=== PATIENT | female | born 1935 | race Caucasian/White ===

== ENCOUNTER 2017-08-17 17:15 | Inpatient (IN) ==
[2017-08-17] MEDS ORDERED: DILTIAZEM 50 MG/10 ML VIAL IV STA (17:24)
[2017-08-17] MEDS ORDERED: SODIUM CHLORIDE 0.9% 1,000 ML IV STA (17:26)
[2017-08-17] MEDS ORDERED: ALBUTEROL NEB SOLN 5 MG/ML 20 ML/BOTTLE CONT NEB STA (17:27)
[2017-08-17] MEDS ORDERED: ALBUTEROL 2.5 MG/3 ML NEB RESP TX ONE ×2 (17:32→17:33)
[2017-08-17] MEDS ORDERED: DILTIAZEM 50 MG/10 ML VIAL IV ONE (17:37)
[2017-08-17] MEDS ORDERED: DILTIAZEM 100 MG VIAL.ADD IV ONE (17:37)
[2017-08-17] MEDS ORDERED: SODIUM CHLORIDE 0.9% 100 ML IV ONE (17:37)
[2017-08-17 17:53] LABS: ABG Base Excess -2.9 MMOL/L (-2.5-2.5); ABG Oxygen Saturation 97.7 % (95-100); ABG PCO2 25.9 MM HG (35-48); ABG PH 7.475 (7.35-7.45); ABG PO2 88.4 MM HG (80-95); ABG TCO2 16.4 MMOL/L (23-27)
[2017-08-17 17:59] LABS: Basophils # 0.1 10*3/uL (0.0-0.2); Basophils % 0.2 % (0.0-0.8); Eosinophils # 0.5 10*3/uL (0.0-0.87); Eosinophils % 2.5 % (0.00-10.9); Hematocrit 40.9 VOL% (35.7-47.0); Hemoglobin 13.9 GM/DL (12.0-16.0); Immature Granulocytes % 1.7 %; Immature Granulocytes Absolute 0.36 #; Lymphocytes # 3.4 10*3/uL (1.4-4.0); Mean Corpuscular Hemoglobin 29 PG (27-34); Mean Corpuscular Volume 85.4 FL (87-102); Mean Platelet Volume 10.9 FL (9.6-12.0); Monocytes # 0.8 10*3/uL (0.11-0.8); Monocytes % 3.5 % (1.7-12.7); Neutrophils # 16.3 10*3/uL (1.4-7.4); Neutrophils % 76.1 % (38.7-73.9); Platelet Count 305 T/CUMM (130-400); Red Blood Count 4.79 MC/CUMM (3.8-5.5); Red Cell Distribution Width 14.3 % (9.3-17.3); White Blood Count 21.4 T/CUMM (4-12)
[2017-08-17 18:10] LABS: Partial Thromboplastin Time 35.4 SECS (0-40)
[2017-08-17 18:14] LABS: Apearance,Urine CLEAR (Clear); Bilirubin,Urine Negative (Negative); Blood, Urine Negative (Negative); Glucose,Urine (UA) Negative (Negative); Hyaline Casts,Urine 2 /LPF (0-3); Ketones,Urine Negative (Negative); Mucus,Urine Occasional /LPF (Occasional); Nitrite,Urine Negative (Negative); Protein,Urine 30 MG/DL; RBC,Urine 1 /HPF (0-4); Squamous Epithelial Cell,Urine Occasional /HPF (0-10); Urine Color Yellow (Yellow); Urine Specific Gravity 1.016 (1.001-1.035); Urine Urobilinogen < 2.0 EU/DL (0.2-1.0); WBC,Urine <1 /HPF (0-6)
[2017-08-17 18:20] LABS: Alanine Aminotransferase 15 U/L (13-56); Albumin 3.4 G/DL (3.4-5.0); Alkaline Phosphatase 89 U/L (45-117); Aspartate Amino Transferase 17 U/L (0-37); Blood Urea Nitrogen 71 MG/DL (7-18); Calcium 8.5 MG/DL (8.5-10.1); Glucose 126 MG/DL (74-106); Magnesium 1.8 MG/DL (1.8-2.4); Osmolality,Calculated 295.8 MOS/KG (273-304); Potassium 4.2 MMOL/L (3.5-5.1); Sodium 137 MMOL/L (136-145); Total Protein 6.8 G/DL (6.4-8.3); Troponin I Only < 0.015 NG/ML (0.00-0.045)
[2017-08-17 18:21] LABS: PT Patient Result 40.6 SECS
[2017-08-17] MEDS: DILTIAZEM INJ 100 MG in SODIUM CHLORIDE 0.9% 100 ML IV SCH (18:22)
[2017-08-17] MEDS ORDERED: ENOXAPARIN 100 MG/ML SYRINGE SUBCUT STA (19:20)
[2017-08-17] MEDS ORDERED: ENOXAPARIN 80 MG/0.8 ML SYRINGE SUBCUT ONE (19:39)
[2017-08-17 20:04] LABS: Eosinophils 3 % (0-10); Lymphocytes 7 % (20-55); Platelet Estimate Normal; Segmented Neutrophils 87 % (50-85); Total Cells Counted 100
[2017-08-17] MEDS ORDERED: MORPHINE 2 MG/1 ML SYRINGE IV PRN (22:20)
[2017-08-17] MEDS ORDERED: OSELTAMIVIR 75 MG CAPSULE PO SCH (22:20)
[2017-08-17] MEDS ORDERED: ONDANSETRON 4 MG/2 ML VIAL IV PRN (22:20)
[2017-08-17] MEDS ORDERED: LEVOFLOXACIN INJ 500 MG in PREMIX 1 EACH IV ONE (22:20)
[2017-08-17] MEDS ORDERED: ACETAMINOPHEN 325 MG TABLET PO PRN (22:20)
[2017-08-17] MEDS ORDERED: guaiFENesin/DM ER 600-30 MG TABLET PO PRN (22:20)
[2017-08-17] MEDS: SODIUM CHLORIDE 0.9% 1,000 ML IV SCH (22:30)
[2017-08-17] MEDS: methylPREDNISolone SOD SUC 40 MG/1 ML VIAL IV SCH (23:25)
[2017-08-18] MEDS: ALBUTEROL/IPRATROPIUM 3 ML NEB RESP TX SCH ×4 (00:07→20:57)
[2017-08-18] MEDS: DILTIAZEM INJ 100 MG in SODIUM CHLORIDE 0.9% 100 ML IV SCH ×2 (03:54→18:05)
[2017-08-18 05:11] LABS: Basophils % 0.1 % (0.0-0.8); Eosinophils % 0.1 % (0.00-10.9); Hematocrit 34.1 VOL% (35.7-47.0); Hemoglobin 11.1 GM/DL (12.0-16.0); Immature Granulocytes % 1.4 %; Immature Granulocytes Absolute 0.29 #; Lymphocytes % 5.1 % (21.3-54.2); Mean Corpuscular HGB Conc 32.6 GM/DL (32-36); Mean Corpuscular Hemoglobin 28 PG (27-34); Mean Corpuscular Volume 86.5 FL (87-102); Mean Platelet Volume 11.3 FL (9.6-12.0); Monocytes # 0.1 10*3/uL (0.11-0.8); Monocytes % 0.6 % (1.7-12.7); Neutrophils # 18.6 10*3/uL (1.4-7.4); Neutrophils % 92.7 % (38.7-73.9); Platelet Count 214 T/CUMM (130-400); Red Blood Count 3.94 MC/CUMM (3.8-5.5); Red Cell Distribution Width 14.4 % (9.3-17.3); White Blood Count 20.1 T/CUMM (4-12)
[2017-08-18 05:35] LABS: Eosinophils 1 % (0-10); Hypochromasia 1+; Lymphocytes 3 % (20-55); Microcytosis 1+; Segmented Neutrophils 94 % (50-85); Total Cells Counted 100
[2017-08-18 05:36] LABS: Ovalocytes Slight; Platelet Estimate Normal
[2017-08-18 06:22] LABS: Calcium 7.4 MG/DL (8.5-10.1); Calcium 7.8 MG/DL (8.5-10.1); Magnesium 1.9 MG/DL (1.8-2.4); Osmolality,Calculated 298.5 MOS/KG (273-304); Osmolality,Calculated 301.4 MOS/KG (273-304); Potassium 4.4 MMOL/L (3.5-5.1); Potassium 4.6 MMOL/L (3.5-5.1); Troponin I Only 0.016 NG/ML (0.00-0.045)
[2017-08-18] MEDS: methylPREDNISolone SOD SUC 40 MG/1 ML VIAL IV SCH (10:06)
[2017-08-18] MEDS: PANTOPRAZOLE 40 MG TABLET PO SCH (10:07)
[2017-08-18] MEDS: BENZONATATE 100 MG CAPSULE PO SCH ×3 (11:23→21:13)
[2017-08-18] MEDS: MONTELUKAST 10 MG TABLET PO SCH ×2 (11:23→21:12)
[2017-08-18] MEDS: DILTIAZEM CD 180 MG CAPSULE PO SCH (11:23)
[2017-08-18] MEDS: CHLORTHALIDONE 25 MG TABLET PO SCH (11:24)
[2017-08-18] MEDS ORDERED: AMINOPHYLLINE 250 MG in SODIUM CHLORIDE 0.9% 100 ML IV ONE (11:30)
[2017-08-18] MEDS: SODIUM CHLORIDE 0.9% 1,000 ML IV SCH ×2 (11:41→15:45)
[2017-08-18] MEDS ORDERED: BENZONATATE 100 MG CAPSULE PO SCH (15:00)
[2017-08-18] MEDS: AMINOPHYLLINE 500 MG in SODIUM CHLORIDE 0.9% 480 ML IV SCH (15:45)
[2017-08-18] MEDS: OSELTAMIVIR 30 MG CAPSULE PO SCH (21:12)
[2017-08-18] MEDS: LEVOFLOXACIN INJ 250 MG in PREMIX 1 EACH IV SCH (21:12)
[2017-08-18] MEDS: ENOXAPARIN 40 MG/0.4 ML SYRINGE SUBCUT SCH (21:12)
[2017-08-19] MEDS: methylPREDNISolone SOD SUC 40 MG/1 ML VIAL IV SCH ×3 (00:20→22:17)
[2017-08-19] MEDS: ALBUTEROL/IPRATROPIUM 3 ML NEB RESP TX SCH ×5 (00:21→19:29)
[2017-08-19] MEDS: SODIUM CHLORIDE 0.9% 1,000 ML IV SCH ×4 (01:37→19:51)
[2017-08-19 05:53] LABS: Basophils # 0.1 10*3/uL (0.0-0.2); Basophils % 0.2 % (0.0-0.8); Hematocrit 25.2 VOL% (35.7-47.0); Hemoglobin 8.6 GM/DL (12.0-16.0); Immature Granulocytes % 4.2 %; Immature Granulocytes Absolute 1.37 #; Lymphocytes % 3.1 % (21.3-54.2); Mean Corpuscular HGB Conc 34.1 GM/DL (32-36); Mean Corpuscular Hemoglobin 29 PG (27-34); Mean Corpuscular Volume 84.6 FL (87-102); Mean Platelet Volume 11.4 FL (9.6-12.0); Monocytes # 0.3 10*3/uL (0.11-0.8); Monocytes % 0.8 % (1.7-12.7); Neutrophils # 30.1 10*3/uL (1.4-7.4); Neutrophils % 91.7 % (38.7-73.9); Platelet Count 204 T/CUMM (130-400); Red Blood Count 2.98 MC/CUMM (3.8-5.5); Red Cell Distribution Width 14.7 % (9.3-17.3); White Blood Count 32.8 T/CUMM (4-12)
[2017-08-19 06:13] LABS: Band Neutrophils 1 % (0-10); Lymphocytes 3 % (20-55); Segmented Neutrophils 95 % (50-85); Total Cells Counted 100
[2017-08-19 06:14] LABS: Calcium 7.6 MG/DL (8.5-10.1); Hypochromasia Slight; Microcytosis 1+; Osmolality,Calculated 302.1 MOS/KG (273-304); Platelet Estimate Normal; Potassium 3.6 MMOL/L (3.5-5.1)
[2017-08-19] MEDS: LEVOTHYROXINE 100 MCG TABLET PO SCH (06:39)
[2017-08-19] MEDS: BENZONATATE 100 MG CAPSULE PO SCH ×4 (07:23→22:17)
[2017-08-19] MEDS: PANTOPRAZOLE 40 MG TABLET PO SCH ×2 (07:24→10:57)
[2017-08-19] MEDS: DILTIAZEM CD 180 MG CAPSULE PO SCH ×2 (07:24→10:57)
[2017-08-19] MEDS: MONTELUKAST 10 MG TABLET PO SCH ×3 (07:24→22:17)
[2017-08-19] MEDS: CHLORTHALIDONE 25 MG TABLET PO SCH ×2 (07:24→10:57)
[2017-08-19] MEDS: DILTIAZEM INJ 100 MG in SODIUM CHLORIDE 0.9% 100 ML IV SCH (09:49)
[2017-08-19] MEDS: OSELTAMIVIR 30 MG CAPSULE PO SCH ×2 (10:58→22:21)
[2017-08-19] MEDS: VANCOMYCIN INJ 1,000 MG in SODIUM CHLORIDE 0.9% 250 ML IV SCH (12:44)
[2017-08-19] MEDS: ALBUTEROL 2 MG TABLET PO SCH (16:30)
[2017-08-19] MEDS: AMINOPHYLLINE 500 MG in SODIUM CHLORIDE 0.9% 480 ML IV SCH (16:50)
[2017-08-19] MEDS ORDERED: ALUMINUM/MAGNES/SIMETH MAX STR 30 ML UDCUP PO PRN (18:04)
[2017-08-19] MEDS: ENOXAPARIN 40 MG/0.4 ML SYRINGE SUBCUT SCH (22:17)
[2017-08-19] MEDS: LEVOFLOXACIN INJ 250 MG in PREMIX 1 EACH IV SCH (22:20)
[2017-08-19] MEDS: ZALEPLON 5 MG CAPSULE PO PRN (22:47)
[2017-08-20] MEDS: ALBUTEROL 2 MG TABLET PO SCH ×4 (00:10→16:58)
[2017-08-20] MEDS: ALBUTEROL/IPRATROPIUM 3 ML NEB RESP TX SCH ×4 (00:11→19:55)
[2017-08-20] MEDS: SODIUM CHLORIDE 0.9% 1,000 ML IV SCH (02:11)
[2017-08-20 04:46] LABS: Basophils % 0.1 % (0.0-0.8); Hematocrit 19.5 VOL% (35.7-47.0); Hemoglobin 6.5 GM/DL (12.0-16.0); Immature Granulocytes % 4.7 %; Immature Granulocytes Absolute 1.65 #; Lymphocytes # 1.1 10*3/uL (1.4-4.0); Lymphocytes % 3.1 % (21.3-54.2); Mean Corpuscular HGB Conc 33.3 GM/DL (32-36); Mean Corpuscular Hemoglobin 29 PG (27-34); Mean Corpuscular Volume 88.2 FL (87-102); Mean Platelet Volume 11.6 FL (9.6-12.0); Monocytes # 0.4 10*3/uL (0.11-0.8); Monocytes % 1.1 % (1.7-12.7); Neutrophils # 32.2 10*3/uL (1.4-7.4); Platelet Count 198 T/CUMM (130-400); Red Blood Count 2.21 MC/CUMM (3.8-5.5); Red Cell Distribution Width 15.7 % (9.3-17.3); White Blood Count 35.4 T/CUMM (4-12)
[2017-08-20] MEDS: DILTIAZEM INJ 100 MG in SODIUM CHLORIDE 0.9% 100 ML IV SCH ×3 (05:08→18:01)
[2017-08-20 05:14] LABS: Calcium 7.3 MG/DL (8.5-10.1); Osmolality,Calculated 305.6 MOS/KG (273-304); Potassium 3.6 MMOL/L (3.5-5.1)
[2017-08-20 05:22] LABS: INR 3.7
[2017-08-20 05:28] LABS: PT Patient Result 37.7 SECS
[2017-08-20 05:37] LABS: Band Neutrophils 1 % (0-10); Giant Platelets Few; Hypochromasia 1+; Lymphocytes 2 % (20-55); Microcytosis Slight; Ovalocytes Slight; Platelet Estimate Adequate; Segmented Neutrophils 95 % (50-85); Total Cells Counted 100
[2017-08-20] MEDS: LEVOTHYROXINE 100 MCG TABLET PO SCH (06:18)
[2017-08-20] MEDS ORDERED: CALCIUM GLUCONATE 1,000 MG in SODIUM CHLORIDE 0.9% 100 ML IV ONE (06:28)
[2017-08-20] MEDS: SODIUM CHLORIDE 0.45% 1,000 ML IV SCH ×2 (07:10→20:41)
[2017-08-20] MEDS: DILTIAZEM CD 180 MG CAPSULE PO SCH (09:21)
[2017-08-20] MEDS: PANTOPRAZOLE 40 MG TABLET PO SCH (09:21)
[2017-08-20] MEDS: MONTELUKAST 10 MG TABLET PO SCH ×2 (09:21→21:45)
[2017-08-20] MEDS: CHLORTHALIDONE 25 MG TABLET PO SCH (09:21)
[2017-08-20] MEDS: BENZONATATE 100 MG CAPSULE PO SCH ×3 (09:21→21:45)
[2017-08-20] MEDS: OSELTAMIVIR 30 MG CAPSULE PO SCH ×2 (09:26→21:45)
[2017-08-20 09:39] LABS: Basophils # 0.1 10*3/uL (0.0-0.2); Basophils % 0.2 % (0.0-0.8); Hematocrit 20.7 VOL% (35.7-47.0); Immature Granulocytes % 4.2 %; Immature Granulocytes Absolute 1.86 #; Lymphocytes # 1.9 10*3/uL (1.4-4.0); Lymphocytes % 4.2 % (21.3-54.2); Mean Corpuscular HGB Conc 33.8 GM/DL (32-36); Mean Corpuscular Hemoglobin 30 PG (27-34); Mean Corpuscular Volume 88.5 FL (87-102); Mean Platelet Volume 12.2 FL (9.6-12.0); Monocytes # 0.6 10*3/uL (0.11-0.8); Monocytes % 1.3 % (1.7-12.7); NRBC # 0.02 10*3/uL; Neutrophils # 39.7 10*3/uL (1.4-7.4); Neutrophils % 90.1 % (38.7-73.9); Platelet Count 228 T/CUMM (130-400); Red Blood Count 2.34 MC/CUMM (3.8-5.5); Red Cell Distribution Width 15.8 % (9.3-17.3)
[2017-08-20 09:41] LABS: White Blood Count 44.1 T/CUMM (4-12)
[2017-08-20] MEDS ORDERED: SODIUM CHLORIDE 0.9% 1,000 ML IV PRN (09:55)
[2017-08-20 09:57] LABS: Band Neutrophils 2 % (0-10); Lymphocytes 7 % (20-55); Nucleated Red Blood Cells 1 (0-5); Segmented Neutrophils 90 % (50-85); Total Cells Counted 100
[2017-08-20 09:58] LABS: Giant Platelets Few; Hypochromasia 1+; Microcytosis Slight; Ovalocytes Slight; Platelet Estimate Adequate
[2017-08-20] MEDS: methylPREDNISolone SOD SUC 40 MG/1 ML VIAL IV SCH ×2 (11:38→21:45)
[2017-08-20] MEDS: VANCOMYCIN INJ 1,000 MG in SODIUM CHLORIDE 0.9% 250 ML IV SCH (11:47)
[2017-08-20] MEDS: AMINOPHYLLINE 500 MG in SODIUM CHLORIDE 0.9% 480 ML IV SCH (13:07)
[2017-08-20] MEDS: SUCRALFATE 1 GM TABLET PO SCH ×2 (16:57→21:45)
[2017-08-20] MEDS: THEOPHYLLINE ER 300 MG TABLET PO SCH (16:58)
[2017-08-20 21:18] LABS: Hematocrit 25.9 VOL% (35.7-47.0); Hemoglobin 8.7 GM/DL (12.0-16.0)
[2017-08-20] MEDS: ENOXAPARIN 40 MG/0.4 ML SYRINGE SUBCUT SCH (21:34)
[2017-08-20] MEDS: ZALEPLON 5 MG CAPSULE PO PRN ×2 (21:45→23:10)
[2017-08-20] MEDS: LEVOFLOXACIN INJ 250 MG in PREMIX 1 EACH IV SCH (21:48)
[2017-08-21] MEDS: ALBUTEROL/IPRATROPIUM 3 ML NEB RESP TX SCH ×4 (00:50→20:17)
[2017-08-21 05:09] LABS: Basophils % 0.1 % (0.0-0.8); Hematocrit 23.2 VOL% (35.7-47.0); Immature Granulocytes % 5.3 %; Immature Granulocytes Absolute 1.59 #; Lymphocytes # 1.2 10*3/uL (1.4-4.0); Lymphocytes % 3.8 % (21.3-54.2); Mean Corpuscular HGB Conc 34.5 GM/DL (32-36); Mean Corpuscular Hemoglobin 30 PG (27-34); Mean Corpuscular Volume 85.9 FL (87-102); Mean Platelet Volume 11.9 FL (9.6-12.0); Monocytes # 0.4 10*3/uL (0.11-0.8); Monocytes % 1.4 % (1.7-12.7); NRBC # 0.06 10*3/uL; Neutrophils # 26.9 10*3/uL (1.4-7.4); Neutrophils % 89.4 % (38.7-73.9); Platelet Count 169 T/CUMM (130-400); Red Cell Distribution Width 15.5 % (9.3-17.3); White Blood Count 30.2 T/CUMM (4-12)
[2017-08-21 05:32] LABS: INR 2.8
[2017-08-21 05:44] LABS: Calcium 7.5 MG/DL (8.5-10.1); Osmolality,Calculated 296.4 MOS/KG (273-304); Potassium 3.1 MMOL/L (3.5-5.1)
[2017-08-21 05:47] LABS: PT Patient Result 28.9 SECS
[2017-08-21 06:28] LABS: Hypochromasia 1+; Lymphocytes 7 % (20-55); Microcytosis Slight; Nucleated Red Blood Cells 1 (0-5); Segmented Neutrophils 91 % (50-85); Total Cells Counted 100
[2017-08-21 06:29] LABS: Ovalocytes Slight; Platelet Estimate Adequate
[2017-08-21] MEDS: LEVOTHYROXINE 100 MCG TABLET PO SCH (06:36)
[2017-08-21] MEDS: SODIUM CHLORIDE 0.45% 1,000 ML IV SCH ×3 (06:37→22:37)
[2017-08-21] MEDS: ALBUTEROL 2 MG TABLET PO SCH ×3 (08:31→17:08)
[2017-08-21] MEDS: BENZONATATE 100 MG CAPSULE PO SCH ×3 (08:31→21:55)
[2017-08-21] MEDS: DILTIAZEM CD 180 MG CAPSULE PO SCH (08:31)
[2017-08-21] MEDS: THEOPHYLLINE ER 300 MG TABLET PO SCH ×2 (08:31→17:07)
[2017-08-21] MEDS: MONTELUKAST 10 MG TABLET PO SCH ×2 (08:32→21:46)
[2017-08-21] MEDS: PANTOPRAZOLE 40 MG TABLET PO SCH (08:32)
[2017-08-21] MEDS: POTASSIUM CHLORIDE 20 MEQ TABLET PO PRN ×4 (08:32→17:08)
[2017-08-21] MEDS: OSELTAMIVIR 30 MG CAPSULE PO SCH ×2 (08:32→21:53)
[2017-08-21] MEDS: CHLORTHALIDONE 25 MG TABLET PO SCH (08:32)
[2017-08-21] MEDS: SUCRALFATE 1 GM TABLET PO SCH ×4 (08:32→21:46)
[2017-08-21] MEDS: methylPREDNISolone SOD SUC 40 MG/1 ML VIAL IV SCH ×2 (09:21→21:46)
[2017-08-21] MEDS: VANCOMYCIN INJ 1,000 MG in SODIUM CHLORIDE 0.9% 250 ML IV SCH (09:25)
[2017-08-21] MEDS: METOPROLOL TARTRATE 50 MG TABLET PO SCH ×2 (14:25→21:45)
[2017-08-21] MEDS ORDERED: WARFARIN 1 MG TABLET PO SCH (18:00)
[2017-08-21] MEDS: ZALEPLON 5 MG CAPSULE PO PRN (21:46)
[2017-08-21] MEDS: LEVOFLOXACIN INJ 250 MG in PREMIX 1 EACH IV SCH (21:48)
[2017-08-21] MEDS: ENOXAPARIN 40 MG/0.4 ML SYRINGE SUBCUT SCH (21:52)
[2017-08-22] MEDS: ALBUTEROL/IPRATROPIUM 3 ML NEB RESP TX SCH ×4 (01:58→20:02)
[2017-08-22 05:06] LABS: Basophils % 0.1 % (0.0-0.8); Hematocrit 24.7 VOL% (35.7-47.0); Hemoglobin 8.5 GM/DL (12.0-16.0); Immature Granulocytes % 4.2 %; Immature Granulocytes Absolute 1.21 #; Lymphocytes # 1.1 10*3/uL (1.4-4.0); Lymphocytes % 3.8 % (21.3-54.2); Mean Corpuscular HGB Conc 34.4 GM/DL (32-36); Mean Corpuscular Hemoglobin 30 PG (27-34); Mean Corpuscular Volume 87.9 FL (87-102); Mean Platelet Volume 11.7 FL (9.6-12.0); Monocytes # 0.6 10*3/uL (0.11-0.8); Monocytes % 2.2 % (1.7-12.7); NRBC # 0.09 10*3/uL; Neutrophils # 25.9 10*3/uL (1.4-7.4); Neutrophils % 89.7 % (38.7-73.9); Platelet Count 177 T/CUMM (130-400); Red Blood Count 2.81 MC/CUMM (3.8-5.5); Red Cell Distribution Width 15.9 % (9.3-17.3); White Blood Count 28.9 T/CUMM (4-12)
[2017-08-22 05:39] LABS: Calcium 8.1 MG/DL (8.5-10.1); Osmolality,Calculated 299.1 MOS/KG (273-304); Potassium 4.1 MMOL/L (3.5-5.1)
[2017-08-22 05:41] LABS: INR 2.1
[2017-08-22] MEDS: LEVOTHYROXINE 100 MCG TABLET PO SCH (06:05)
[2017-08-22 06:07] LABS: PT Patient Result 21.6 SECS
[2017-08-22 06:25] LABS: Troponin I Only 0.035 NG/ML (0.00-0.045)
[2017-08-22 06:28] LABS: Band Neutrophils 1 % (0-10); Hypochromasia 1+; Lymphocytes 5 % (20-55); Microcytosis 1+; Ovalocytes Slight; Platelet Estimate Adequate; Segmented Neutrophils 93 % (50-85); Total Cells Counted 100
[2017-08-22 06:29] LABS: Burr Cells Slight
[2017-08-22] MEDS: ALBUTEROL 2 MG TABLET PO SCH ×3 (09:02→16:56)
[2017-08-22] MEDS: CHLORTHALIDONE 25 MG TABLET PO SCH (09:02)
[2017-08-22] MEDS: BENZONATATE 100 MG CAPSULE PO SCH ×3 (09:03→21:24)
[2017-08-22] MEDS: METOPROLOL TARTRATE 50 MG TABLET PO SCH ×2 (09:03→21:25)
[2017-08-22] MEDS: SUCRALFATE 1 GM TABLET PO SCH ×4 (09:03→21:25)
[2017-08-22] MEDS: PANTOPRAZOLE 40 MG TABLET PO SCH (09:03)
[2017-08-22] MEDS: DILTIAZEM CD 180 MG CAPSULE PO SCH (09:03)
[2017-08-22] MEDS: THEOPHYLLINE ER 300 MG TABLET PO SCH ×2 (09:03→17:02)
[2017-08-22] MEDS: MONTELUKAST 10 MG TABLET PO SCH ×2 (09:03→21:25)
[2017-08-22] MEDS: methylPREDNISolone SOD SUC 40 MG/1 ML VIAL IV SCH ×2 (10:21→21:25)
[2017-08-22] MEDS: VANCOMYCIN INJ 1,000 MG in SODIUM CHLORIDE 0.9% 250 ML IV SCH (10:24)
[2017-08-22] MEDS: POLYETHYLENE GLYCOL POWDER 17 GM PACK PO SCH (10:25)
[2017-08-22] MEDS ORDERED: WARFARIN 1 MG TABLET PO SCH (13:25)
[2017-08-22] MEDS: ENOXAPARIN 40 MG/0.4 ML SYRINGE SUBCUT SCH (21:20)
[2017-08-22] MEDS: ZALEPLON 5 MG CAPSULE PO PRN (21:25)
[2017-08-22] MEDS: LEVOFLOXACIN INJ 250 MG in PREMIX 1 EACH IV SCH (21:27)
[2017-08-23] MEDS: ALBUTEROL/IPRATROPIUM 3 ML NEB RESP TX SCH ×4 (00:56→21:06)
[2017-08-23] MEDS ORDERED: VANCOMYCIN INJ 1,000 MG in SODIUM CHLORIDE 0.9% 250 ML IV SCH (03:00)
[2017-08-23 05:44] LABS: Basophils % 0.1 % (0.0-0.8); Hematocrit 23.5 VOL% (35.7-47.0); Hemoglobin 8.1 GM/DL (12.0-16.0); Immature Granulocytes % 3.3 %; Immature Granulocytes Absolute 0.71 #; Lymphocytes # 0.6 10*3/uL (1.4-4.0); Mean Corpuscular HGB Conc 34.5 GM/DL (32-36); Mean Corpuscular Hemoglobin 30 PG (27-34); Mean Platelet Volume 11.5 FL (9.6-12.0); Monocytes # 0.5 10*3/uL (0.11-0.8); Monocytes % 2.4 % (1.7-12.7); NRBC # 0.05 10*3/uL; Neutrophils # 19.5 10*3/uL (1.4-7.4); Neutrophils % 91.2 % (38.7-73.9); Platelet Count 169 T/CUMM (130-400); Red Blood Count 2.67 MC/CUMM (3.8-5.5); Red Cell Distribution Width 15.9 % (9.3-17.3); White Blood Count 21.3 T/CUMM (4-12)
[2017-08-23 06:00] LABS: INR 1.9; PT Patient Result 19.5 SECS
[2017-08-23] MEDS: LEVOTHYROXINE 100 MCG TABLET PO SCH (06:00)
[2017-08-23 06:11] LABS: Calcium 7.5 MG/DL (8.5-10.1); Osmolality,Calculated 295.4 MOS/KG (273-304); Potassium 3.6 MMOL/L (3.5-5.1)
[2017-08-23 06:19] LABS: Hypochromasia 1+; Lymphocytes 4 % (20-55); Platelet Estimate Normal; Segmented Neutrophils 96 % (50-85); Total Cells Counted 100
[2017-08-23 06:20] LABS: Anisocytosis Slight; Microcytosis Slight; Ovalocytes 1+
[2017-08-23] MEDS: methylPREDNISolone SOD SUC 40 MG/1 ML VIAL IV SCH ×3 (08:56→21:59)
[2017-08-23] MEDS: METOPROLOL TARTRATE 50 MG TABLET PO SCH ×2 (08:57→21:59)
[2017-08-23] MEDS: THEOPHYLLINE ER 300 MG TABLET PO SCH ×2 (08:57→16:34)
[2017-08-23] MEDS: SUCRALFATE 1 GM TABLET PO SCH ×4 (08:58→21:58)
[2017-08-23] MEDS: PANTOPRAZOLE 40 MG TABLET PO SCH (08:58)
[2017-08-23] MEDS: MONTELUKAST 10 MG TABLET PO SCH ×2 (08:58→21:58)
[2017-08-23] MEDS: CHLORTHALIDONE 25 MG TABLET PO SCH (08:58)
[2017-08-23] MEDS: BENZONATATE 100 MG CAPSULE PO SCH ×3 (08:58→21:58)
[2017-08-23] MEDS: ALBUTEROL 2 MG TABLET PO SCH ×3 (10:12→16:34)
[2017-08-23] MEDS: DILTIAZEM CD 180 MG CAPSULE PO SCH (10:12)
[2017-08-23] MEDS: POLYETHYLENE GLYCOL POWDER 17 GM PACK PO SCH (10:12)
[2017-08-23] MEDS ORDERED: WARFARIN 3 MG TABLET PO SCH (13:27)
[2017-08-23] MEDS: ZALEPLON 5 MG CAPSULE PO PRN (22:12)
[2017-08-24] MEDS: ALBUTEROL/IPRATROPIUM 3 ML NEB RESP TX SCH ×4 (01:36→20:05)
[2017-08-24 05:14] LABS: Basophils % 0.1 % (0.0-0.8); Hematocrit 25.4 VOL% (35.7-47.0); Hemoglobin 8.7 GM/DL (12.0-16.0); Immature Granulocytes % 2.5 %; Immature Granulocytes Absolute 0.46 #; Lymphocytes # 0.4 10*3/uL (1.4-4.0); Lymphocytes % 2.2 % (21.3-54.2); Mean Corpuscular HGB Conc 34.3 GM/DL (32-36); Mean Corpuscular Hemoglobin 31 PG (27-34); Mean Corpuscular Volume 89.1 FL (87-102); Mean Platelet Volume 11.2 FL (9.6-12.0); Monocytes # 0.4 10*3/uL (0.11-0.8); Monocytes % 2.3 % (1.7-12.7); NRBC # 0.03 10*3/uL; Neutrophils # 17.1 10*3/uL (1.4-7.4); Neutrophils % 92.9 % (38.7-73.9); Platelet Count 179 T/CUMM (130-400); Red Blood Count 2.85 MC/CUMM (3.8-5.5); White Blood Count 18.4 T/CUMM (4-12)
[2017-08-24 05:22] LABS: INR 1.5; PT Patient Result 15.4 SECS
[2017-08-24 05:44] LABS: Giant Platelets Few; Hypochromasia 1+; Lymphocytes 1 % (20-55); Microcytosis Slight; Ovalocytes Slight; Platelet Estimate Normal; Segmented Neutrophils 96 % (50-85); Total Cells Counted 100
[2017-08-24 05:50] LABS: Calcium 7.2 MG/DL (8.5-10.1); Osmolality,Calculated 293.3 MOS/KG (273-304); Potassium 3.1 MMOL/L (3.5-5.1)
[2017-08-24] MEDS: LEVOTHYROXINE 100 MCG TABLET PO SCH (07:51)
[2017-08-24] MEDS: THEOPHYLLINE ER 300 MG TABLET PO SCH ×2 (07:52→16:07)
[2017-08-24] MEDS: SUCRALFATE 1 GM TABLET PO SCH ×4 (07:52→20:29)
[2017-08-24] MEDS: ALBUTEROL 2 MG TABLET PO SCH (07:52)
[2017-08-24] MEDS: DILTIAZEM CD 180 MG CAPSULE PO SCH ×2 (09:17→16:08)
[2017-08-24] MEDS: METOPROLOL TARTRATE 50 MG TABLET PO SCH ×2 (09:17→20:29)
[2017-08-24] MEDS: POLYETHYLENE GLYCOL POWDER 17 GM PACK PO SCH (09:18)
[2017-08-24] MEDS: PANTOPRAZOLE 40 MG TABLET PO SCH (09:18)
[2017-08-24] MEDS: MONTELUKAST 10 MG TABLET PO SCH ×2 (09:18→20:30)
[2017-08-24] MEDS: BENZONATATE 100 MG CAPSULE PO SCH ×3 (09:18→20:30)
[2017-08-24] MEDS: methylPREDNISolone SOD SUC 40 MG/1 ML VIAL IV SCH (10:32)
[2017-08-24] MEDS ORDERED: POTASSIUM CHLORIDE INJ 20 MEQ in SODIUM CHLORIDE 0.9% 250 ML IV ONE (11:00)
[2017-08-24 13:24] LABS: Osmolality,Calculated 291.3 MOS/KG (273-304); Potassium 3.6 MMOL/L (3.5-5.1)
[2017-08-24] MEDS: POTASSIUM CHLORIDE 20 MEQ TABLET PO SCH (16:08)
[2017-08-24] MEDS: ZALEPLON 5 MG CAPSULE PO PRN (22:33)
[2017-08-25] MEDS: ALBUTEROL/IPRATROPIUM 3 ML NEB RESP TX SCH ×4 (01:32→19:54)
[2017-08-25 06:14] LABS: Basophils % 0.1 % (0.0-0.8); Hemoglobin 8.1 GM/DL (12.0-16.0); Immature Granulocytes % 2.1 %; Immature Granulocytes Absolute 0.32 #; Lymphocytes # 0.8 10*3/uL (1.4-4.0); Lymphocytes % 5.1 % (21.3-54.2); Mean Corpuscular HGB Conc 33.8 GM/DL (32-36); Mean Corpuscular Hemoglobin 30 PG (27-34); Mean Corpuscular Volume 89.2 FL (87-102); Mean Platelet Volume 11.1 FL (9.6-12.0); Monocytes # 0.8 10*3/uL (0.11-0.8); Monocytes % 4.9 % (1.7-12.7); NRBC # 0.02 10*3/uL; Neutrophils # 13.4 10*3/uL (1.4-7.4); Neutrophils % 87.8 % (38.7-73.9); Platelet Count 165 T/CUMM (130-400); Red Blood Count 2.69 MC/CUMM (3.8-5.5); White Blood Count 15.2 T/CUMM (4-12)
[2017-08-25 06:20] LABS: INR 1.3; PT Patient Result 13.1 SECS
[2017-08-25 06:35] LABS: Calcium 7.5 MG/DL (8.5-10.1); Osmolality,Calculated 288.4 MOS/KG (273-304); Potassium 3.8 MMOL/L (3.5-5.1)
[2017-08-25] MEDS ORDERED: PROPOFOL 200 MG/20 ML VIAL IV ONE (12:05)
[2017-08-25] MEDS ORDERED: LIDOCAINE 100 MG/5 ML SYRINGE ONE (12:05)
[2017-08-25] MEDS: BENZONATATE 100 MG CAPSULE PO SCH ×3 (14:32→20:43)
[2017-08-25] MEDS: LEVOTHYROXINE 100 MCG TABLET PO SCH (14:32)
[2017-08-25] MEDS: MONTELUKAST 10 MG TABLET PO SCH ×2 (14:33→20:43)
[2017-08-25] MEDS: THEOPHYLLINE ER 300 MG TABLET PO SCH ×2 (14:33→18:24)
[2017-08-25] MEDS: SUCRALFATE 1 GM TABLET PO SCH ×3 (14:35→20:43)
[2017-08-25] MEDS: POTASSIUM CHLORIDE 20 MEQ TABLET PO SCH (14:37)
[2017-08-25] MEDS: METOPROLOL TARTRATE 50 MG TABLET PO SCH ×2 (14:38→20:43)
[2017-08-25] MEDS: DILTIAZEM CD 180 MG CAPSULE PO SCH (14:39)
[2017-08-25] MEDS: PANTOPRAZOLE 40 MG TABLET PO SCH ×2 (14:41→20:43)
[2017-08-25] MEDS: methylPREDNISolone SOD SUC 40 MG/1 ML VIAL IV SCH (18:25)
[2017-08-26] MEDS: ALBUTEROL/IPRATROPIUM 3 ML NEB RESP TX SCH ×4 (01:02→21:31)
[2017-08-26 03:30] LABS: Basophils % 0.1 % (0.0-0.8); Hematocrit 24.6 VOL% (35.7-47.0); Hemoglobin 8.5 GM/DL (12.0-16.0); Immature Granulocytes % 1.5 %; Immature Granulocytes Absolute 0.28 #; Lymphocytes # 0.5 10*3/uL (1.4-4.0); Lymphocytes % 2.6 % (21.3-54.2); Mean Corpuscular HGB Conc 34.6 GM/DL (32-36); Mean Corpuscular Hemoglobin 30 PG (27-34); Mean Corpuscular Volume 87.9 FL (87-102); Mean Platelet Volume 11.1 FL (9.6-12.0); Monocytes # 0.2 10*3/uL (0.11-0.8); Monocytes % 0.8 % (1.7-12.7); Neutrophils # 17.4 10*3/uL (1.4-7.4); Platelet Count 168 T/CUMM (130-400); Red Cell Distribution Width 15.5 % (9.3-17.3); White Blood Count 18.3 T/CUMM (4-12)
[2017-08-26 03:46] LABS: INR 1.1; PT Patient Result 11.9 SECS
[2017-08-26 04:27] LABS: Lymphocytes 1 % (20-55); Segmented Neutrophils 99 % (50-85); Total Cells Counted 100
[2017-08-26 04:28] LABS: Hypochromasia 1+; Microcytosis Slight; Ovalocytes Slight; Platelet Estimate Normal
[2017-08-26] MEDS: LEVOTHYROXINE 100 MCG TABLET PO SCH (06:48)
[2017-08-26] MEDS: ALBUTEROL 2 MG TABLET PO SCH ×6 (09:13→16:52)
[2017-08-26] MEDS: METOPROLOL TARTRATE 50 MG TABLET PO SCH ×2 (09:15→22:20)
[2017-08-26] MEDS: MONTELUKAST 10 MG TABLET PO SCH ×2 (09:15→22:20)
[2017-08-26] MEDS: BENZONATATE 100 MG CAPSULE PO SCH ×3 (09:15→22:19)
[2017-08-26] MEDS: THEOPHYLLINE ER 300 MG TABLET PO SCH ×2 (09:15→16:52)
[2017-08-26] MEDS: POTASSIUM CHLORIDE 20 MEQ TABLET PO SCH (09:15)
[2017-08-26] MEDS: PANTOPRAZOLE 40 MG TABLET PO SCH ×3 (09:15→22:20)
[2017-08-26] MEDS: DILTIAZEM CD 180 MG CAPSULE PO SCH (09:16)
[2017-08-26] MEDS: SUCRALFATE 1 GM TABLET PO SCH ×4 (09:18→22:20)
[2017-08-26] MEDS: methylPREDNISolone SOD SUC 40 MG/1 ML VIAL IV SCH (09:24)
[2017-08-26] MEDS ORDERED: SODIUM CHLORIDE 0.9% 1,000 ML IV PRN ×2 (13:27→13:38)
[2017-08-26 21:19] LABS: Hematocrit 27.7 VOL% (35.7-47.0); Hemoglobin 9.2 GM/DL (12.0-16.0)
[2017-08-26] MEDS ORDERED: TEMAZEPAM 15 MG CAPSULE PO SCH (22:00)
[2017-08-27] MEDS: ALBUTEROL/IPRATROPIUM 3 ML NEB RESP TX SCH ×2 (01:01→07:45)
[2017-08-27 05:21] LABS: Basophils % 0.1 % (0.0-0.8); Hematocrit 27.8 VOL% (35.7-47.0); Hemoglobin 9.5 GM/DL (12.0-16.0); Immature Granulocytes % 2.2 %; Lymphocytes % 5.4 % (21.3-54.2); Mean Corpuscular HGB Conc 34.2 GM/DL (32-36); Mean Corpuscular Hemoglobin 29 PG (27-34); Mean Corpuscular Volume 84.2 FL (87-102); Monocytes # 0.5 10*3/uL (0.11-0.8); Monocytes % 2.6 % (1.7-12.7); Neutrophils # 16.2 10*3/uL (1.4-7.4); Neutrophils % 89.7 % (38.7-73.9); Platelet Count 163 T/CUMM (130-400); Red Cell Distribution Width 18.8 % (9.3-17.3)
[2017-08-27 05:33] LABS: INR 1.1; PT Patient Result 11.4 SECS; Partial Thromboplastin Time 25.3 SECS (0-40)
[2017-08-27] MEDS ORDERED: BENZONATATE 100 MG CAPSULE PO ONE (07:30)
[2017-08-27] MEDS ORDERED: MEPERIDINE 50 MG/1 ML VIAL IM ONE (07:30)
[2017-08-27] MEDS ORDERED: diphenhydrAMINE 50 MG/1 ML VIAL IM ONE (07:30)
[2017-08-27] MEDS: LEVOTHYROXINE 100 MCG TABLET PO SCH (07:46)
[2017-08-27] MEDS ORDERED: LIDOCAINE 2% VISCOUS 100 ML BOTTLE SWISH/SPIT ONE (08:00)
[2017-08-27] MEDS ORDERED: LIDOCAINE 2% 20 ML VIAL RESP TX ONE (08:00)
[2017-08-27] MEDS ORDERED: LIDOCAINE 1% 20 ML VIAL MISC INJ ONE (08:00)
[2017-08-27] MEDS: SUCRALFATE 1 GM TABLET PO SCH ×2 (09:41→12:30)
[2017-08-27] MEDS: BENZONATATE 100 MG CAPSULE PO SCH (09:42)
[2017-08-27] MEDS: ALBUTEROL 2 MG TABLET PO SCH ×2 (09:42→12:31)
[2017-08-27 11:56] VITALS: BP 150/74
[2017-08-27] MEDS: METOPROLOL TARTRATE 50 MG TABLET PO SCH (12:29)
[2017-08-27] MEDS: DILTIAZEM CD 180 MG CAPSULE PO SCH (12:30)
[2017-08-27] MEDS: PANTOPRAZOLE 40 MG TABLET PO SCH (12:30)
[2017-08-27] MEDS: POTASSIUM CHLORIDE 20 MEQ TABLET PO SCH (12:30)
[2017-08-27] MEDS: MONTELUKAST 10 MG TABLET PO SCH (12:30)
[2017-08-27] MEDS: methylPREDNISolone SOD SUC 40 MG/1 ML VIAL IV SCH (12:31)
[2017-08-27] MEDS: THEOPHYLLINE ER 300 MG TABLET PO SCH (12:31)
== END 2017-08-27 15:18 | disposition swing bed (61) | DRG 202 ==
LOC: EDBD → EDUNIT# → N.ED 17:15 → SUATTDRO 20:38 → N.EDINP 20:38 → N.TELEN 21:37
PROVIDERS: ADMIT Internal Medicine; ATTEND Internal Medicine

== ENCOUNTER 2018-04-29 12:00 | Inpatient (IN) ==
[2018-04-29 13:55] LABS: Basophils # 0.1 10*3/uL (0.0-0.2); Basophils % 0.4 % (0.0-0.8); Eosinophils # 0.2 10*3/uL (0.0-0.87); Eosinophils % 1.2 % (0.00-10.9); Hematocrit 40.4 VOL% (35.7-47.0); Hemoglobin 13.5 GM/DL (12.0-16.0); Immature Granulocytes % 0.3 %; Immature Granulocytes Absolute 0.04 #; Lymphocytes # 1.3 10*3/uL (1.4-4.0); Lymphocytes % 9.8 % (21.3-54.2); Mean Corpuscular HGB Conc 33.4 GM/DL (32-36); Mean Corpuscular Hemoglobin 27 PG (27-34); Mean Corpuscular Volume 80.8 FL (87-102); Monocytes # 0.7 10*3/uL (0.11-0.8); Monocytes % 5.6 % (1.7-12.7); Neutrophils % 82.7 % (38.7-73.9); Platelet Count 231 T/CUMM (130-400); Red Cell Distribution Width 14.5 % (9.3-17.3); White Blood Count 13.3 T/CUMM (4-12)
[2018-04-29 14:17] LABS: Albumin 3.5 G/DL (3.4-5.0); Bilirubin,Total 0.8 MG/DL (0.2-1.0); Calcium 9.7 MG/DL (8.5-10.1); Potassium 3.7 MMOL/L (3.5-5.1); Total Protein 7.3 G/DL (6.4-8.3)
[2018-04-29] MEDS ORDERED: SODIUM CHLORIDE 0.9% 1,000 ML IV STA (15:37)
[2018-04-29] MEDS ORDERED: LEVOFLOXACIN INJ 500 MG in PREMIX 1 EACH IV STA (15:38)
[2018-04-29 15:58] LABS: PT Patient Result 56.4 SECS
[2018-04-29 15:59] LABS: INR 5.7
[2018-04-29] MEDS ORDERED: ONDANSETRON 4 MG/2 ML VIAL IV PRN (16:23)
[2018-04-29] MEDS ORDERED: DOCUSATE SODIUM 100 MG CAPSULE PO PRN (16:23)
[2018-04-29] MEDS ORDERED: MORPHINE 4 MG/1 ML VIAL IV PRN (16:23)
[2018-04-29] MEDS ORDERED: BISACODYL 5 MG TABLET PO PRN (16:23)
[2018-04-29] MEDS ORDERED: ENOXAPARIN 40 MG/0.4 ML SYRINGE SUBCUT SCH (16:30)
[2018-04-29] MEDS ORDERED: LEVOFLOXACIN INJ 250 MG in PREMIX 1 EACH IV ONE (16:30)
[2018-04-29] MEDS ORDERED: ALBUTEROL/IPRATROPIUM 3 ML NEB RESP TX PRN (16:32)
[2018-04-29] MEDS ORDERED: WARFARIN 3 MG TABLET PO SCH (18:00)
[2018-04-29] MEDS: SODIUM CHLORIDE 0.9% 1,000 ML IV SCH (18:47)
[2018-04-29] MEDS: PANTOPRAZOLE 40 MG TABLET PO SCH (18:47)
[2018-04-29] MEDS: metroNIDAZOLE INJ 500 MG in PREMIX 1 EACH IV SCH ×2 (18:47→22:25)
[2018-04-29] MEDS: THEOPHYLLINE ER 300 MG TABLET PO SCH (21:14)
[2018-04-29] MEDS: MONTELUKAST 10 MG TABLET PO SCH (21:15)
[2018-04-29] MEDS: METOPROLOL TARTRATE 50 MG TABLET PO SCH (21:15)
[2018-04-29] MEDS: BUDESONIDE/FORMOTEROL 160-4.5 INHALER 6 GM INH SCH (21:17)
[2018-04-29 22:24] LABS: Apearance,Urine CLEAR (Clear); Bilirubin,Urine Negative (Negative); Blood, Urine Small mg/dL (Negative); Glucose,Urine (UA) Negative (Negative); Ketones,Urine Negative (Negative); Nitrite,Urine Positive (Negative); Protein,Urine Negative; RBC,Urine <1 /HPF (0-4); Squamous Epithelial Cell,Urine Occasional /HPF (0-10); Urine Color Yellow (Yellow); Urine Specific Gravity 1.026 (1.001-1.035); Urine Urobilinogen < 2.0 EU/DL (0.2-1.0); WBC,Urine 10 /HPF (0-6)
[2018-04-30] MEDS: metroNIDAZOLE INJ 500 MG in PREMIX 1 EACH IV SCH ×4 (04:28→22:30)
[2018-04-30 06:10] LABS: Basophils % 0.4 % (0.0-0.8); Eosinophils # 0.2 10*3/uL (0.0-0.87); Eosinophils % 2.2 % (0.00-10.9); Hematocrit 37.4 VOL% (35.7-47.0); Hemoglobin 12.3 GM/DL (12.0-16.0); Immature Granulocytes % 0.3 %; Immature Granulocytes Absolute 0.02 #; Lymphocytes # 1.5 10*3/uL (1.4-4.0); Lymphocytes % 19.5 % (21.3-54.2); Mean Corpuscular HGB Conc 32.9 GM/DL (32-36); Mean Corpuscular Hemoglobin 26 PG (27-34); Mean Corpuscular Volume 79.7 FL (87-102); Mean Platelet Volume 11.9 FL (9.6-12.0); Monocytes # 0.5 10*3/uL (0.11-0.8); Monocytes % 7.1 % (1.7-12.7); Neutrophils # 5.2 10*3/uL (1.4-7.4); Neutrophils % 70.5 % (38.7-73.9); Platelet Count 184 T/CUMM (130-400); Red Blood Count 4.69 MC/CUMM (3.8-5.5); Red Cell Distribution Width 14.4 % (9.3-17.3); White Blood Count 7.4 T/CUMM (4-12)
[2018-04-30] MEDS: LEVOTHYROXINE 100 MCG TABLET PO SCH (06:14)
[2018-04-30 06:25] LABS: PT Patient Result 55.3 SECS
[2018-04-30 06:26] LABS: INR 5.6
[2018-04-30 06:49] LABS: Calcium 9.4 MG/DL (8.5-10.1); Osmolality,Calculated 277.5 MOS/KG (273-304); Thyroid Stimulating Hormone 0.024 uIU/ml (0.358-3.74)
[2018-04-30] MEDS: PANTOPRAZOLE 40 MG TABLET PO SCH (09:52)
[2018-04-30] MEDS: DILTIAZEM CD 180 MG CAPSULE PO SCH (09:52)
[2018-04-30] MEDS: ESCITALOPRAM 10 MG TABLET PO SCH (09:53)
[2018-04-30] MEDS: METOPROLOL TARTRATE 50 MG TABLET PO SCH ×2 (09:53→21:17)
[2018-04-30] MEDS: BUDESONIDE/FORMOTEROL 160-4.5 INHALER 6 GM INH SCH ×2 (09:54→21:17)
[2018-04-30] MEDS: MONTELUKAST 10 MG TABLET PO SCH (21:17)
[2018-04-30] MEDS: THEOPHYLLINE ER 300 MG TABLET PO SCH (21:17)
[2018-04-30] MEDS: SODIUM CHLORIDE 0.9% 1,000 ML IV SCH (23:52)
[2018-05-01] MEDS: SODIUM CHLORIDE 0.9% 1,000 ML IV SCH (01:57)
[2018-05-01 04:56] LABS: Basophils % 0.5 % (0.0-0.8); Eosinophils # 0.2 10*3/uL (0.0-0.87); Eosinophils % 3.7 % (0.00-10.9); Hematocrit 36.2 VOL% (35.7-47.0); Hemoglobin 11.8 GM/DL (12.0-16.0); Immature Granulocytes % 0.5 %; Immature Granulocytes Absolute 0.03 #; Lymphocytes # 1.6 10*3/uL (1.4-4.0); Lymphocytes % 24.2 % (21.3-54.2); Mean Corpuscular HGB Conc 32.6 GM/DL (32-36); Mean Corpuscular Hemoglobin 27 PG (27-34); Mean Corpuscular Volume 82.8 FL (87-102); Mean Platelet Volume 12.1 FL (9.6-12.0); Monocytes # 0.5 10*3/uL (0.11-0.8); Neutrophils # 4.2 10*3/uL (1.4-7.4); Neutrophils % 64.1 % (38.7-73.9); Platelet Count 201 T/CUMM (130-400); Red Blood Count 4.37 MC/CUMM (3.8-5.5); Red Cell Distribution Width 14.5 % (9.3-17.3); White Blood Count 6.6 T/CUMM (4-12)
[2018-05-01 05:29] LABS: Osmolality,Calculated 282.4 MOS/KG (273-304); Potassium 4.4 MMOL/L (3.5-5.1)
[2018-05-01 05:35] LABS: INR 3.3
[2018-05-01 05:37] LABS: PT Patient Result 32.9 SECS
[2018-05-01] MEDS: LEVOTHYROXINE 100 MCG TABLET PO SCH (05:53)
[2018-05-01] MEDS: metroNIDAZOLE INJ 500 MG in PREMIX 1 EACH IV SCH ×4 (05:53→22:57)
[2018-05-01] MEDS: METOPROLOL TARTRATE 50 MG TABLET PO SCH ×2 (09:05→21:19)
[2018-05-01] MEDS: DILTIAZEM CD 180 MG CAPSULE PO SCH (09:05)
[2018-05-01] MEDS: ESCITALOPRAM 10 MG TABLET PO SCH (09:05)
[2018-05-01] MEDS: PANTOPRAZOLE 40 MG TABLET PO SCH (09:05)
[2018-05-01] MEDS: BUDESONIDE/FORMOTEROL 160-4.5 INHALER 6 GM INH SCH ×2 (09:06→21:20)
[2018-05-01] MEDS ORDERED: LEVOFLOXACIN INJ 750 MG in PREMIX 1 EACH IV SCH (18:00)
[2018-05-01] MEDS: THEOPHYLLINE ER 300 MG TABLET PO SCH (21:19)
[2018-05-01] MEDS: MONTELUKAST 10 MG TABLET PO SCH (21:19)
[2018-05-02] MEDS: metroNIDAZOLE INJ 500 MG in PREMIX 1 EACH IV SCH ×4 (04:35→23:18)
[2018-05-02 05:58] LABS: Basophils % 0.5 % (0.0-0.8); Eosinophils # 0.3 10*3/uL (0.0-0.87); Eosinophils % 4.8 % (0.00-10.9); Hematocrit 33.9 VOL% (35.7-47.0); Immature Granulocytes % 0.2 %; Immature Granulocytes Absolute 0.01 #; Lymphocytes # 1.4 10*3/uL (1.4-4.0); Lymphocytes % 21.8 % (21.3-54.2); Mean Corpuscular HGB Conc 32.4 GM/DL (32-36); Mean Corpuscular Hemoglobin 27 PG (27-34); Mean Corpuscular Volume 82.9 FL (87-102); Mean Platelet Volume 12.1 FL (9.6-12.0); Monocytes # 0.4 10*3/uL (0.11-0.8); Neutrophils # 4.1 10*3/uL (1.4-7.4); Neutrophils % 65.7 % (38.7-73.9); Platelet Count 203 T/CUMM (130-400); Red Blood Count 4.09 MC/CUMM (3.8-5.5); Red Cell Distribution Width 14.6 % (9.3-17.3); White Blood Count 6.3 T/CUMM (4-12)
[2018-05-02] MEDS: LEVOTHYROXINE 100 MCG TABLET PO SCH (06:01)
[2018-05-02 06:07] LABS: INR 2.4
[2018-05-02 06:09] LABS: PT Patient Result 24.7 SECS
[2018-05-02 06:20] LABS: Calcium 9.1 MG/DL (8.5-10.1); Osmolality,Calculated 281.4 MOS/KG (273-304); Potassium 3.9 MMOL/L (3.5-5.1)
[2018-05-02] MEDS: ESCITALOPRAM 10 MG TABLET PO SCH (09:56)
[2018-05-02] MEDS: DILTIAZEM CD 180 MG CAPSULE PO SCH (09:56)
[2018-05-02] MEDS: METOPROLOL TARTRATE 50 MG TABLET PO SCH ×2 (09:56→21:18)
[2018-05-02] MEDS: PANTOPRAZOLE 40 MG TABLET PO SCH (09:56)
[2018-05-02] MEDS: BUDESONIDE/FORMOTEROL 160-4.5 INHALER 6 GM INH SCH ×2 (10:00→21:18)
[2018-05-02] MEDS: SODIUM CHLORIDE 0.9% 1,000 ML IV SCH (13:00)
[2018-05-02] MEDS: THEOPHYLLINE ER 300 MG TABLET PO SCH (21:18)
[2018-05-02] MEDS: DOXYCYCLINE HYCLATE 100 MG CAPSULE PO SCH (21:18)
[2018-05-02] MEDS: MONTELUKAST 10 MG TABLET PO SCH (21:18)
[2018-05-03] MEDS: metroNIDAZOLE INJ 500 MG in PREMIX 1 EACH IV SCH (04:49)
[2018-05-03] MEDS: LEVOTHYROXINE 100 MCG TABLET PO SCH (05:52)
[2018-05-03 06:06] LABS: INR 1.8
[2018-05-03] MEDS: BUDESONIDE/FORMOTEROL 160-4.5 INHALER 6 GM INH SCH ×2 (10:04→21:06)
[2018-05-03] MEDS: METOPROLOL TARTRATE 50 MG TABLET PO SCH ×2 (10:05→21:05)
[2018-05-03] MEDS: DOXYCYCLINE HYCLATE 100 MG CAPSULE PO SCH ×2 (10:05→21:05)
[2018-05-03] MEDS: DILTIAZEM CD 180 MG CAPSULE PO SCH (10:05)
[2018-05-03] MEDS: PANTOPRAZOLE 40 MG TABLET PO SCH (10:05)
[2018-05-03] MEDS: ESCITALOPRAM 10 MG TABLET PO SCH (10:05)
[2018-05-03] MEDS: metroNIDAZOLE 500 MG TABLET PO SCH ×2 (14:26→21:05)
[2018-05-03] MEDS: SODIUM CHLORIDE 0.9% 1,000 ML IV SCH ×2 (17:32)
[2018-05-03] MEDS ORDERED: WARFARIN 3 MG TABLET PO SCH (18:00)
[2018-05-03] MEDS: MONTELUKAST 10 MG TABLET PO SCH (21:05)
[2018-05-03] MEDS: THEOPHYLLINE ER 300 MG TABLET PO SCH (21:06)
[2018-05-04] MEDS: LEVOTHYROXINE 100 MCG TABLET PO SCH (06:19)
[2018-05-04 07:54] LABS: INR 1.9; PT Patient Result 19.4 SECS
[2018-05-04] MEDS: PANTOPRAZOLE 40 MG TABLET PO SCH (09:23)
[2018-05-04] MEDS: METOPROLOL TARTRATE 50 MG TABLET PO SCH (09:24)
[2018-05-04] MEDS: metroNIDAZOLE 500 MG TABLET PO SCH (09:24)
[2018-05-04] MEDS: DILTIAZEM CD 180 MG CAPSULE PO SCH (09:24)
[2018-05-04] MEDS: DOXYCYCLINE HYCLATE 100 MG CAPSULE PO SCH (09:24)
[2018-05-04] MEDS: ESCITALOPRAM 10 MG TABLET PO SCH (09:24)
[2018-05-04] MEDS: BUDESONIDE/FORMOTEROL 160-4.5 INHALER 6 GM INH SCH (09:25)
[2018-05-04] MEDS: SODIUM CHLORIDE 0.9% 1,000 ML IV SCH (12:43)
[2018-05-04 13:01] VITALS: BP 143/69
== END 2018-05-04 14:36 | disposition home or self-care (01) | DRG 392 ==
LOC: EDUNIT# → EDBD → N.ED 12:00 → N.EDINP 16:23 → N.3E 17:23
PROVIDERS: ADMIT Internal Medicine; ATTEND Internal Medicine

== ENCOUNTER 2020-06-04 20:04 | Inpatient (IN) ==
[2020-06-04 20:52] LABS: Basophils % 0.3 % (0.0-0.8); Eosinophils # 0.3 10*3/uL (0.0-0.87); Eosinophils % 2.2 % (0.00-10.9); Hematocrit 38.5 VOL% (35.7-47.0); Hemoglobin 13.2 GM/DL (12.0-16.0); Immature Granulocytes % 0.3 %; Immature Granulocytes Absolute 0.04 #; Lymphocytes # 1.7 10*3/uL (1.4-4.0); Lymphocytes % 13.6 % (21.3-54.2); Mean Corpuscular HGB Conc 34.3 GM/DL (32-36); Mean Corpuscular Volume 86.5 FL (87-102); Mean Platelet Volume 12.1 FL (9.6-12.0); Monocytes % 6.3 % (1.7-12.7); Neutrophils % 77.3 % (38.7-73.9); Platelet Count 217 T/CUMM (130-400); Red Blood Count 4.45 MC/CUMM (3.8-5.5); Red Cell Distribution Width 13.5 % (9.3-17.3); White Blood Count 12.4 T/CUMM (4-12)
[2020-06-04 21:08] LABS: Albumin 3.8 G/DL (3.4-5.0); Bilirubin,Total 0.6 MG/DL (0.2-1.0); Osmolality,Calculated 288.5 MOS/KG (273-304); Total Protein 8.1 G/DL (6.4-8.3)
[2020-06-04 21:13] LABS: Calcium 14.2 MG/DL (8.5-10.1)
[2020-06-04] MEDS ORDERED: POTASSIUM CHLORIDE 20 MEQ TABLET PO STA (21:18)
[2020-06-04] MEDS ORDERED: SODIUM CHLORIDE 0.9% 1,000 ML IV STA (21:18)
[2020-06-04 21:29] LABS: Troponin I < 0.015 NG/ML (0.00-0.045)
[2020-06-04] MEDS ORDERED: hydrALAZINE 20 MG/1 ML VIAL IV PRN (21:34)
[2020-06-04] MEDS ORDERED: GLUCAGON 1 MG VIAL IM PRN (21:34)
[2020-06-04] MEDS ORDERED: DEXTROSE 50% 25 GM/50 ML VIAL IV PRN (21:34)
[2020-06-04] MEDS ORDERED: guaiFENesin/DM ER 600-30 MG TABLET PO PRN (21:34)
[2020-06-04] MEDS ORDERED: ACETAMINOPHEN 325 MG TABLET PO PRN (21:34)
[2020-06-04] MEDS ORDERED: ONDANSETRON 4 MG/2 ML VIAL IV PRN (21:34)
[2020-06-04] MEDS ORDERED: NICOTINE 21 MG/24 HR PATCH TRANSDERM PRN (21:34)
[2020-06-04] MEDS ORDERED: POTASSIUM CHLORIDE 20 MEQ/15 ML UDCUP ONE (22:07)
[2020-06-04 23:41] LABS: Bilirubin,Urine Negative (Negative); Blood, Urine Negative (Negative); Glucose,Urine (UA) Negative (Negative); Hyaline Casts,Urine 6 /LPF (0-3); Ketones,Urine Negative (Negative); Mucus,Urine Occasional /LPF (Occasional); Nitrite,Urine Negative (Negative); Protein,Urine 30 MG/DL; Squamous Epithelial Cell,Urine Occasional /HPF (0-10); Urine Appearance CLOUDY (Clear); Urine Color Amber (Yellow); Urine Specific Gravity 1.016 (1.001-1.035); Urine Urobilinogen < 2.0 EU/DL (0.2-1.0); WBC,Urine 34 /HPF (0-6)
[2020-06-04] MEDS: SODIUM CHLORIDE 0.9% 1,000 ML IV SCH (23:49)
[2020-06-05] MEDS ORDERED: LEVOFLOXACIN INJ 500 MG in PREMIX 1 EACH IV ONE
[2020-06-05 04:37] LABS: Basophils % 0.4 % (0.0-0.8); Bilirubin,Total 0.6 MG/DL (0.2-1.0); Calcium 13.5 MG/DL (8.5-10.1); Eosinophils # 0.2 10*3/uL (0.0-0.87); Eosinophils % 2.7 % (0.00-10.9); Hematocrit 31.7 VOL% (35.7-47.0); Immature Granulocytes % 0.4 %; Immature Granulocytes Absolute 0.03 #; Lymphocytes # 1.3 10*3/uL (1.4-4.0); Lymphocytes % 16.3 % (21.3-54.2); Mean Corpuscular Volume 85.7 FL (87-102); Mean Platelet Volume 12.1 FL (9.6-12.0); Monocytes % 7.2 % (1.7-12.7); Osmolality,Calculated 291.3 MOS/KG (273-304); Red Cell Distribution Width 13.5 % (9.3-17.3); Total Protein 6.5 G/DL (6.4-8.3)
[2020-06-05 04:39] LABS: Hemoglobin 11.1 GM/DL (12.0-16.0); Platelet Count 173 T/CUMM (130-400); White Blood Count 8.2 T/CUMM (4-12)
[2020-06-05] MEDS ORDERED: POTASSIUM CHLORIDE 20 MEQ TABLET PO ONE (07:48)
[2020-06-05] MEDS: INSULIN REGULAR 100 UNIT/ML SUBCUT SCH ×2 (13:04→16:20)
[2020-06-05] MEDS: SODIUM CHLORIDE 0.9% 1,000 ML IV SCH (13:05)
[2020-06-05] MEDS: levETIRAcetam 500 MG TABLET PO SCH (23:38)
[2020-06-05] MEDS: APIXABAN 2.5 MG TABLET PO SCH (23:39)
[2020-06-05] MEDS: METOPROLOL TARTRATE 25 MG TABLET PO SCH (23:39)
[2020-06-06] MEDS: INSULIN REGULAR 100 UNIT/ML SUBCUT SCH ×5 (00:12→20:36)
[2020-06-06] MEDS: SODIUM CHLORIDE 0.9% 1,000 ML IV SCH ×2 (06:17→19:12)
[2020-06-06] MEDS: LEVOTHYROXINE 75 MCG TABLET PO SCH (06:20)
[2020-06-06 06:21] LABS: Basophils % 0.5 % (0.0-0.8); Eosinophils # 0.3 10*3/uL (0.0-0.87); Eosinophils % 4.2 % (0.00-10.9); Hematocrit 31.8 VOL% (35.7-47.0); Immature Granulocytes % 0.3 %; Immature Granulocytes Absolute 0.02 #; Lymphocytes % 15.4 % (21.3-54.2); Mean Corpuscular HGB Conc 34.6 GM/DL (32-36); Mean Corpuscular Volume 86.6 FL (87-102); Mean Platelet Volume 11.9 FL (9.6-12.0); Monocytes % 6.2 % (1.7-12.7); Neutrophils % 73.4 % (38.7-73.9); Platelet Count 157 T/CUMM (130-400); Red Blood Count 3.67 MC/CUMM (3.8-5.5); Red Cell Distribution Width 13.7 % (9.3-17.3); White Blood Count 6.4 T/CUMM (4-12)
[2020-06-06 06:41] LABS: Calcium 12.5 MG/DL (8.5-10.1); Osmolality,Calculated 291.8 MOS/KG (273-304)
[2020-06-06] MEDS ORDERED: POTASSIUM CHLORIDE 20 MEQ TABLET PO ONE (07:46)
[2020-06-06] MEDS: METOPROLOL TARTRATE 25 MG TABLET PO SCH ×2 (08:39→21:41)
[2020-06-06] MEDS: ASCORBIC ACID 500 MG TABLET PO SCH (08:39)
[2020-06-06] MEDS: ROSUVASTATIN 10 MG TABLET PO SCH (08:40)
[2020-06-06] MEDS: levETIRAcetam 500 MG TABLET PO SCH ×2 (08:40→21:40)
[2020-06-06] MEDS: PANTOPRAZOLE 20 MG TABLET PO SCH (08:41)
[2020-06-06] MEDS: CLOPIDOGREL 75 MG TABLET PO SCH (08:41)
[2020-06-06] MEDS: APIXABAN 2.5 MG TABLET PO SCH ×2 (08:41→21:42)
[2020-06-06 09:24] LABS: Immuno Free Light Chain Kappa 11.66 MG/DL (0.33-1.94); Immuno Free Light Chain Lambda 3.91 MG/DL (0.57-2.63); Immuno Free Light Chain Ratio 2.98 MG/DL (0.26-1.65)
[2020-06-06 12:11] LABS: Immunoglobulin A 212 MG/DL (70-400); Immunoglobulin G 980 MG/DL (700-1600); Immunoglobulin M 123 MG/DL (40-230)
[2020-06-07] MEDS ORDERED: LEVOFLOXACIN INJ 250 MG in PREMIX 1 EACH IV ONE
[2020-06-07 05:39] LABS: Immunoglobulin A (Chem) 212 MG/DL (70-400); Immunoglobulin G (Chem) 980 MG/DL (700-1600); Immunoglobulin M (Chem) 123 MG/DL (40-230)
[2020-06-07 05:40] LABS: Total Protein (Chem) 6.4 G/DL (6.4-8.3)
[2020-06-07 05:41] LABS: Basophils % 0.3 % (0.0-0.8); Eosinophils # 0.3 10*3/uL (0.0-0.87); Eosinophils % 3.6 % (0.00-10.9); Hematocrit 31.5 VOL% (35.7-47.0); Hemoglobin 10.7 GM/DL (12.0-16.0); Immature Granulocytes % 0.3 %; Immature Granulocytes Absolute 0.02 #; Lymphocytes # 1.2 10*3/uL (1.4-4.0); Mean Corpuscular Volume 86.8 FL (87-102); Mean Platelet Volume 11.6 FL (9.6-12.0); Monocytes % 6.3 % (1.7-12.7); Neutrophils % 72.5 % (38.7-73.9); Platelet Count 167 T/CUMM (130-400); Red Blood Count 3.63 MC/CUMM (3.8-5.5); Red Cell Distribution Width 13.4 % (9.3-17.3); White Blood Count 6.9 T/CUMM (4-12)
[2020-06-07 06:03] LABS: Calcium 11.6 MG/DL (8.5-10.1); Osmolality,Calculated 290.8 MOS/KG (273-304)
[2020-06-07] MEDS: POTASSIUM CHLORIDE RIDER 10 MEQ in PREMIX 1 EACH IV PRN ×5 (07:23→23:13)
[2020-06-07] MEDS: LEVOTHYROXINE 75 MCG TABLET PO SCH (07:23)
[2020-06-07] MEDS: INSULIN REGULAR 100 UNIT/ML SUBCUT SCH ×4 (07:56→22:57)
[2020-06-07] MEDS ORDERED: MAGNESIUM SULF RIDER 2 GM in PREMIX 1 EACH IV PRN (08:04)
[2020-06-07] MEDS ORDERED: MAGNESIUM SULF RIDER 4 GM in PREMIX 1 EACH IV PRN (08:04)
[2020-06-07] MEDS: SODIUM CHLORIDE 0.9% 1,000 ML IV SCH (09:50)
[2020-06-07] MEDS: CLOPIDOGREL 75 MG TABLET PO SCH (09:52)
[2020-06-07] MEDS: METOPROLOL TARTRATE 25 MG TABLET PO SCH ×2 (09:52→21:58)
[2020-06-07] MEDS: ROSUVASTATIN 10 MG TABLET PO SCH (09:52)
[2020-06-07] MEDS: ASCORBIC ACID 500 MG TABLET PO SCH (09:52)
[2020-06-07] MEDS: levETIRAcetam 500 MG TABLET PO SCH ×2 (09:52→21:57)
[2020-06-07] MEDS: PANTOPRAZOLE 20 MG TABLET PO SCH (09:52)
[2020-06-07] MEDS: APIXABAN 2.5 MG TABLET PO SCH ×2 (09:52→21:58)
[2020-06-07 10:22] LABS: Bacteria,Urine Occasional /HPF (Few); Bilirubin,Urine Negative (Negative); Blood, Urine Negative (Negative); Glucose,Urine (UA) Negative (Negative); Hyaline Casts,Urine 1 /LPF (0-3); Ketones,Urine Negative (Negative); Mucus,Urine Occasional /LPF (Occasional); Nitrite,Urine Negative (Negative); Protein,Urine Negative; RBC,Urine 2 /HPF (0-4); Squamous Epithelial Cell,Urine Occasional /HPF (0-10); Urine Appearance CLEAR (Clear); Urine Color Straw (Yellow); Urine Specific Gravity 1.008 (1.001-1.035); Urine Urobilinogen < 2.0 EU/DL (0.2-1.0); WBC,Urine 1 /HPF (0-6)
[2020-06-07 10:24] LABS: Albumin (SPE) Rel % 63.1 %; Alpha 2 (SPE) Rel % 10.2 %; Beta (SPE) Rel % 6.8 %; Gamma (SPE) Rel % 16.9 %
[2020-06-07 10:32] LABS: Alpha 1 (SPE) 0.2 G/DL (0.1-0.4); Alpha 2 (SPE) 0.7 G/DL (0.4-1.0); Beta (SPE) 0.4 G/DL (0.5-1.1); Gamma (SPE) 1.1 G/DL (0.7-1.7)
[2020-06-07] MEDS ORDERED: POTASSIUM PHOSPHATE 12 MMOL in SODIUM CHLORIDE 0.9% 100 ML IV ONE (15:00)
[2020-06-08] MEDS ORDERED: SODIUM CHLORIDE 0.9% 1,000 ML IV PRN (00:44)
[2020-06-08 01:14] LABS: Basophils % 0.3 % (0.0-0.8); Eosinophils # 0.3 10*3/uL (0.0-0.87); Eosinophils % 4.2 % (0.00-10.9); Hemoglobin 10.6 GM/DL (12.0-16.0); Immature Granulocytes % 0.5 %; Immature Granulocytes Absolute 0.03 #; Lymphocytes % 15.8 % (21.3-54.2); Mean Corpuscular HGB Conc 34.2 GM/DL (32-36); Mean Corpuscular Volume 87.1 FL (87-102); Mean Platelet Volume 11.6 FL (9.6-12.0); Monocytes % 6.5 % (1.7-12.7); Neutrophils % 72.7 % (38.7-73.9); Platelet Count 166 T/CUMM (130-400); Red Blood Count 3.56 MC/CUMM (3.8-5.5); Red Cell Distribution Width 13.5 % (9.3-17.3); White Blood Count 6.6 T/CUMM (4-12)
[2020-06-08 01:22] LABS: Calcium 11.7 MG/DL (8.5-10.1)
[2020-06-08 01:44] LABS: INR 1.3; PT Patient Result 13.8 SECS (9.8-11.9); Partial Thromboplastin Time 35.6 SECS (23.9-33.8)
[2020-06-08] MEDS ORDERED: LIDOCAINE 1%/EPI INJ 20 ML VIAL MISC INJ PRN (02:00)
[2020-06-08] MEDS: SODIUM CHLORIDE 0.9% 1,000 ML IV SCH (02:39)
[2020-06-08] MEDS: INSULIN REGULAR 100 UNIT/ML SUBCUT SCH ×4 (09:02→22:16)
[2020-06-08] MEDS: POTASSIUM CHLORIDE RIDER 10 MEQ in PREMIX 1 EACH IV PRN ×2 (09:55→12:12)
[2020-06-08] MEDS: levETIRAcetam 500 MG TABLET PO SCH ×2 (09:56→20:38)
[2020-06-08] MEDS: PANTOPRAZOLE 20 MG TABLET PO SCH (09:56)
[2020-06-08] MEDS: LEVOTHYROXINE 75 MCG TABLET PO SCH (09:56)
[2020-06-08] MEDS: METOPROLOL TARTRATE 25 MG TABLET PO SCH ×2 (09:56→20:38)
[2020-06-08] MEDS: ASCORBIC ACID 500 MG TABLET PO SCH (09:56)
[2020-06-08] MEDS: ROSUVASTATIN 10 MG TABLET PO SCH (10:01)
[2020-06-08 11:22] LABS: Total Protein 24 Hr Ur Result 520 MG/24HR (0-149.1); Total Volume,Urine 2000 ML (400-2000)
[2020-06-08] MEDS: diphenhydrAMINE CAP 25 MG CAPSULE PO PRN (20:38)
[2020-06-08] MEDS: CHLORHEXIDINE 0.12% ORAL RINSE 60 ML BOTTLE SWISH/SPIT SCH (20:38)
[2020-06-08] MEDS ORDERED: LORazepam 2 MG/1 ML VIAL IV ONE (21:21)
[2020-06-09] MEDS: LEVOTHYROXINE 75 MCG TABLET PO SCH (05:54)
[2020-06-09 06:00] LABS: Basophils % 0.4 % (0.0-0.8); Eosinophils # 0.2 10*3/uL (0.0-0.87); Eosinophils % 3.9 % (0.00-10.9); Hematocrit 23.7 VOL% (35.7-47.0); Hemoglobin 8.2 GM/DL (12.0-16.0); Immature Granulocytes % 0.2 %; Immature Granulocytes Absolute 0.01 #; Lymphocytes # 1.1 10*3/uL (1.4-4.0); Lymphocytes % 19.2 % (21.3-54.2); Mean Corpuscular HGB Conc 34.6 GM/DL (32-36); Mean Corpuscular Volume 85.9 FL (87-102); Mean Platelet Volume 11.9 FL (9.6-12.0); Monocytes % 6.5 % (1.7-12.7); Neutrophils % 69.8 % (38.7-73.9); Platelet Count 134 T/CUMM (130-400); Red Blood Count 2.76 MC/CUMM (3.8-5.5); Red Cell Distribution Width 13.7 % (9.3-17.3); White Blood Count 5.6 T/CUMM (4-12)
[2020-06-09 06:07] LABS: Calcium 9.9 MG/DL (8.5-10.1); Osmolality,Calculated 297.7 MOS/KG (273-304)
[2020-06-09] MEDS: SODIUM CHLORIDE 0.9% 1,000 ML IV SCH ×3 (08:13→21:57)
[2020-06-09] MEDS: POTASSIUM CHLORIDE RIDER 10 MEQ in PREMIX 1 EACH IV PRN ×3 (08:32→10:47)
[2020-06-09] MEDS: ASCORBIC ACID 500 MG TABLET PO SCH (08:33)
[2020-06-09] MEDS: METOPROLOL TARTRATE 25 MG TABLET PO SCH ×2 (08:33→21:08)
[2020-06-09] MEDS: ROSUVASTATIN 10 MG TABLET PO SCH (08:33)
[2020-06-09] MEDS: PANTOPRAZOLE 20 MG TABLET PO SCH (08:33)
[2020-06-09] MEDS: INSULIN REGULAR 100 UNIT/ML SUBCUT SCH ×4 (08:34→22:04)
[2020-06-09] MEDS: CHLORHEXIDINE 0.12% ORAL RINSE 60 ML BOTTLE SWISH/SPIT SCH ×2 (11:54→22:04)
[2020-06-09] MEDS: levETIRAcetam 500 MG TABLET PO SCH ×2 (11:54→21:08)
[2020-06-09 17:44] LABS: Hematocrit 22.9 VOL% (35.7-47.0); Hemoglobin 7.9 GM/DL (12.0-16.0)
[2020-06-10 04:51] LABS: 24 Hr Protein (Bench) 520 MG/24HR (0-149.1)
[2020-06-10] MEDS: LEVOTHYROXINE 75 MCG TABLET PO SCH (05:45)
[2020-06-10] MEDS: SODIUM CHLORIDE 0.9% 1,000 ML IV SCH (05:45)
[2020-06-10 06:31] LABS: Basophils % 0.4 % (0.0-0.8); Eosinophils # 0.3 10*3/uL (0.0-0.87); Hematocrit 22.4 VOL% (35.7-47.0); Hemoglobin 7.6 GM/DL (12.0-16.0); Immature Granulocytes % 0.2 %; Immature Granulocytes Absolute 0.01 #; Lymphocytes % 17.6 % (21.3-54.2); Mean Corpuscular HGB Conc 33.9 GM/DL (32-36); Mean Corpuscular Volume 88.5 FL (87-102); Mean Platelet Volume 12.5 FL (9.6-12.0); Monocytes % 6.2 % (1.7-12.7); Neutrophils % 69.6 % (38.7-73.9); Platelet Count 119 T/CUMM (130-400); Red Blood Count 2.53 MC/CUMM (3.8-5.5); Red Cell Distribution Width 14.1 % (9.3-17.3); White Blood Count 5.7 T/CUMM (4-12)
[2020-06-10 06:39] LABS: Calcium 9.9 MG/DL (8.5-10.1); Osmolality,Calculated 294.6 MOS/KG (273-304)
[2020-06-10] MEDS: ASCORBIC ACID 500 MG TABLET PO SCH (08:12)
[2020-06-10] MEDS: CHLORHEXIDINE 0.12% ORAL RINSE 60 ML BOTTLE SWISH/SPIT SCH ×2 (08:12→21:14)
[2020-06-10] MEDS: INSULIN REGULAR 100 UNIT/ML SUBCUT SCH ×4 (08:12→21:14)
[2020-06-10] MEDS: levETIRAcetam 500 MG TABLET PO SCH ×2 (08:12→21:14)
[2020-06-10] MEDS: PANTOPRAZOLE 20 MG TABLET PO SCH (08:12)
[2020-06-10] MEDS: METOPROLOL TARTRATE 25 MG TABLET PO SCH ×2 (08:12→21:14)
[2020-06-10] MEDS: ROSUVASTATIN 10 MG TABLET PO SCH (08:12)
[2020-06-10] MEDS ORDERED: SODIUM CHLORIDE 0.9% 1,000 ML IV PRN (08:30)
[2020-06-10] MEDS ORDERED: FUROSEMIDE 40 MG/4 ML VIAL IV ONE (09:23)
[2020-06-10] MEDS: DEXTROSE 5% NACL 0.45% 1,000 ML IV SCH (09:59)
[2020-06-10 13:32] LABS: Hematocrit 29.7 VOL% (35.7-47.0); Hemoglobin 10.2 GM/DL (12.0-16.0)
[2020-06-10] MEDS: diphenhydrAMINE CAP 25 MG CAPSULE PO PRN (23:39)
[2020-06-11 06:06] LABS: Basophils % 0.5 % (0.0-0.8); Eosinophils # 0.4 10*3/uL (0.0-0.87); Hematocrit 27.3 VOL% (35.7-47.0); Hemoglobin 9.5 GM/DL (12.0-16.0); Immature Granulocytes % 0.3 %; Immature Granulocytes Absolute 0.02 #; Lymphocytes # 1.3 10*3/uL (1.4-4.0); Lymphocytes % 19.3 % (21.3-54.2); Mean Corpuscular HGB Conc 34.8 GM/DL (32-36); Mean Corpuscular Volume 84.8 FL (87-102); Mean Platelet Volume 12.2 FL (9.6-12.0); Monocytes % 6.3 % (1.7-12.7); Neutrophils % 67.6 % (38.7-73.9); Platelet Count 133 T/CUMM (130-400); Red Cell Distribution Width 13.6 % (9.3-17.3); White Blood Count 6.5 T/CUMM (4-12)
[2020-06-11 06:08] LABS: Calcium 10.2 MG/DL (8.5-10.1); Osmolality,Calculated 285.3 MOS/KG (273-304); Red Blood Count 3.22 MC/CUMM (3.8-5.5)
[2020-06-11] MEDS: LEVOTHYROXINE 75 MCG TABLET PO SCH ×2 (06:25→09:15)
[2020-06-11] MEDS: INSULIN REGULAR 100 UNIT/ML SUBCUT SCH ×4 (07:52→22:08)
[2020-06-11] MEDS: POTASSIUM CHLORIDE RIDER 10 MEQ in PREMIX 1 EACH IV PRN (08:08)
[2020-06-11] MEDS: DEXT 5% NACL 0.45% KCL 40 MEQ 40 MEQ/1,000 ML BAG IV SCH ×2 (09:13→22:31)
[2020-06-11] MEDS: DEXTROSE 5% NACL 0.45% 1,000 ML IV SCH (09:14)
[2020-06-11] MEDS: METOPROLOL TARTRATE 25 MG TABLET PO SCH ×2 (09:15→22:02)
[2020-06-11] MEDS: ASCORBIC ACID 500 MG TABLET PO SCH (09:15)
[2020-06-11] MEDS: levETIRAcetam 500 MG TABLET PO SCH ×2 (09:15→22:01)
[2020-06-11] MEDS: PANTOPRAZOLE 20 MG TABLET PO SCH (09:15)
[2020-06-11] MEDS: POTASSIUM PHOS/SOD PHOS 250 MG TABLET PO SCH ×4 (09:15→22:30)
[2020-06-11] MEDS: CHLORHEXIDINE 0.12% ORAL RINSE 60 ML BOTTLE SWISH/SPIT SCH ×2 (09:15→22:31)
[2020-06-11] MEDS: ROSUVASTATIN 10 MG TABLET PO SCH (09:15)
[2020-06-11 13:26] LABS: PTH-Related Peptide 0.8 pmol/L (< or = 4.2)
[2020-06-12 05:16] LABS: Basophils % 0.4 % (0.0-0.8); Eosinophils # 0.3 10*3/uL (0.0-0.87); Eosinophils % 4.1 % (0.00-10.9); Hematocrit 28.7 VOL% (35.7-47.0); Hemoglobin 9.8 GM/DL (12.0-16.0); Immature Granulocytes % 0.3 %; Immature Granulocytes Absolute 0.02 #; Lymphocytes # 1.1 10*3/uL (1.4-4.0); Lymphocytes % 16.1 % (21.3-54.2); Mean Corpuscular HGB Conc 34.1 GM/DL (32-36); Mean Corpuscular Volume 85.9 FL (87-102); Mean Platelet Volume 12.3 FL (9.6-12.0); Monocytes % 5.3 % (1.7-12.7); Neutrophils % 73.8 % (38.7-73.9); Platelet Count 135 T/CUMM (130-400); Red Blood Count 3.34 MC/CUMM (3.8-5.5); Red Cell Distribution Width 13.9 % (9.3-17.3); White Blood Count 6.8 T/CUMM (4-12)
[2020-06-12] MEDS: LEVOTHYROXINE 75 MCG TABLET PO SCH (06:28)
[2020-06-12] MEDS: INSULIN REGULAR 100 UNIT/ML SUBCUT SCH ×4 (08:18→20:40)
[2020-06-12] MEDS: ROSUVASTATIN 10 MG TABLET PO SCH (08:56)
[2020-06-12] MEDS: levETIRAcetam 500 MG TABLET PO SCH ×2 (08:57→21:05)
[2020-06-12] MEDS: METOPROLOL TARTRATE 25 MG TABLET PO SCH ×2 (08:58→21:05)
[2020-06-12] MEDS: ASCORBIC ACID 500 MG TABLET PO SCH (08:59)
[2020-06-12] MEDS: PANTOPRAZOLE 20 MG TABLET PO SCH (08:59)
[2020-06-12] MEDS ORDERED: MAGNESIUM SULF RIDER 4 GM in PREMIX 1 EACH IV ONE (09:00)
[2020-06-12] MEDS: MULTIVITAMIN (CENTRUM) TABLET PO SCH (09:00)
[2020-06-12] MEDS: CHLORHEXIDINE 0.12% ORAL RINSE 60 ML BOTTLE SWISH/SPIT SCH ×2 (09:23→21:05)
[2020-06-12] MEDS: DEXT 5% NACL 0.45% KCL 40 MEQ 40 MEQ/1,000 ML BAG IV SCH ×2 (13:53→21:15)
[2020-06-13] MEDS: DEXT 5% NACL 0.45% KCL 40 MEQ 40 MEQ/1,000 ML BAG IV SCH ×3 (01:56→14:51)
[2020-06-13] MEDS: LEVOTHYROXINE 75 MCG TABLET PO SCH (05:40)
[2020-06-13 06:18] LABS: Basophils % 0.4 % (0.0-0.8); Eosinophils # 0.3 10*3/uL (0.0-0.87); Eosinophils % 4.2 % (0.00-10.9); Hematocrit 27.9 VOL% (35.7-47.0); Hemoglobin 9.4 GM/DL (12.0-16.0); Immature Granulocytes % 0.4 %; Immature Granulocytes Absolute 0.03 #; Lymphocytes % 13.2 % (21.3-54.2); Mean Corpuscular HGB Conc 33.7 GM/DL (32-36); Mean Corpuscular Volume 87.5 FL (87-102); Mean Platelet Volume 12.5 FL (9.6-12.0); Monocytes % 6.5 % (1.7-12.7); Neutrophils % 75.3 % (38.7-73.9); Platelet Count 135 T/CUMM (130-400); Red Blood Count 3.19 MC/CUMM (3.8-5.5); Red Cell Distribution Width 14.2 % (9.3-17.3); White Blood Count 7.6 T/CUMM (4-12)
[2020-06-13 06:39] LABS: Osmolality,Calculated 280.4 MOS/KG (273-304)
[2020-06-13] MEDS: INSULIN REGULAR 100 UNIT/ML SUBCUT SCH ×3 (08:18→15:42)
[2020-06-13] MEDS: PANTOPRAZOLE 20 MG TABLET PO SCH (10:14)
[2020-06-13] MEDS: METOPROLOL TARTRATE 25 MG TABLET PO SCH ×2 (10:14→21:15)
[2020-06-13] MEDS: levETIRAcetam 500 MG TABLET PO SCH ×2 (10:14→21:11)
[2020-06-13] MEDS: MULTIVITAMIN (CENTRUM) TABLET PO SCH (10:15)
[2020-06-13] MEDS: ROSUVASTATIN 10 MG TABLET PO SCH (10:15)
[2020-06-13] MEDS: ASCORBIC ACID 500 MG TABLET PO SCH (10:15)
[2020-06-13] MEDS: CHLORHEXIDINE 0.12% ORAL RINSE 60 ML BOTTLE SWISH/SPIT SCH ×2 (10:15→21:11)
[2020-06-14] MEDS: INSULIN REGULAR 100 UNIT/ML SUBCUT SCH ×3 (00:57→13:02)
[2020-06-14 04:03] LABS: Basophils % 0.5 % (0.0-0.8); Eosinophils # 0.3 10*3/uL (0.0-0.87); Eosinophils % 5.1 % (0.00-10.9); Hematocrit 28.5 VOL% (35.7-47.0); Hemoglobin 9.4 GM/DL (12.0-16.0); Immature Granulocytes % 0.5 %; Immature Granulocytes Absolute 0.03 #; Lymphocytes # 1.1 10*3/uL (1.4-4.0); Lymphocytes % 16.7 % (21.3-54.2); Mean Corpuscular Volume 87.7 FL (87-102); Monocytes % 8.1 % (1.7-12.7); Neutrophils % 69.1 % (38.7-73.9); Platelet Count 121 T/CUMM (130-400); Red Blood Count 3.25 MC/CUMM (3.8-5.5); Red Cell Distribution Width 14.1 % (9.3-17.3); White Blood Count 6.4 T/CUMM (4-12)
[2020-06-14 04:35] LABS: Calcium 10.1 MG/DL (8.5-10.1); Osmolality,Calculated 278.4 MOS/KG (273-304)
[2020-06-14 05:29] LABS: Microcytosis 1+; Ovalocytes Few
[2020-06-14 05:30] LABS: Hypochromasia 1+; Platelet Estimate Adequate
[2020-06-14] MEDS: LEVOTHYROXINE 75 MCG TABLET PO SCH (06:05)
[2020-06-14] MEDS: ROSUVASTATIN 10 MG TABLET PO SCH (09:12)
[2020-06-14] MEDS: MULTIVITAMIN (CENTRUM) TABLET PO SCH (09:12)
[2020-06-14] MEDS: METOPROLOL TARTRATE 25 MG TABLET PO SCH (09:13)
[2020-06-14] MEDS: ASCORBIC ACID 500 MG TABLET PO SCH (09:13)
[2020-06-14] MEDS: CHLORHEXIDINE 0.12% ORAL RINSE 60 ML BOTTLE SWISH/SPIT SCH (09:13)
[2020-06-14] MEDS: PANTOPRAZOLE 20 MG TABLET PO SCH (09:13)
[2020-06-14] MEDS: levETIRAcetam 500 MG TABLET PO SCH (09:14)
[2020-06-14 14:45] VITALS: BP 141/89
== END 2020-06-14 13:49 | disposition home or self-care (01) | DRG 682 ==
LOC: N.EDINP 20:04 → N.ED 20:04 → N.TELES 06-05 12:49 → SUATTDRO 06-06 14:20
PROVIDERS: ADMIT Internal Medicine; ATTEND Internal Medicine

== ENCOUNTER 2022-05-29 15:09 | Inpatient (IN) ==
[2022-05-29] MEDS ORDERED: cefTRIAXone 1,000 MG in SODIUM CHLORIDE 0.9% 100 ML IV STA (16:14)
[2022-05-29] MEDS ORDERED: SODIUM CHLORIDE 0.9% 1,000 ML IV STA (16:28)
[2022-05-29 16:56] LABS: Basophils % 0.5 % (0.0-0.8); Eosinophils # 0.3 10*3/uL (0.0-0.87); Eosinophils % 4.2 % (0.00-10.9); Hematocrit 40.8 VOL% (35.7-47.0); Hemoglobin 13.5 GM/DL (12.0-16.0); Immature Granulocytes % 0.3 %; Immature Granulocytes Absolute 0.02 #; Lymphocytes # 1.5 10*3/uL (1.4-4.0); Lymphocytes % 19.4 % (21.3-54.2); Mean Corpuscular HGB Conc 33.1 GM/DL (32-36); Mean Corpuscular Volume 90.5 FL (87-102); Mean Platelet Volume 10.8 FL (9.6-12.0); Monocytes # 0.5 10*3/uL (0.11-0.8); Monocytes % 6.1 % (1.7-12.7); Neutrophils % 69.5 % (38.7-73.9); Platelet Count 163 T/CUMM (130-400); Red Blood Count 4.51 MC/CUMM (3.8-5.5); White Blood Count 7.9 T/CUMM (4-12)
[2022-05-29 17:18] LABS: Alanine Aminotransferase 14 U/L (13-56); Albumin 2.9 G/DL (3.4-5.0); Alkaline Phosphatase 115 U/L (45-117); Aspartate Amino Transferase 14 U/L (0-37); Bilirubin,Total < 0.39 MG/DL (0.20-1.00); Blood Urea Nitrogen 45 MG/DL (7-18); Calcium 8.6 MG/DL (8.5-10.1); Carbon Dioxide 26 MMOL/L (21-32); Chloride 107 MMOL/L (98-107); Glucose 96 MG/DL (74-106); Osmolality,Calculated 286.7 MOS/KG (273-304); Sodium 138 MMOL/L (136-145); Total Protein 5.9 G/DL (6.4-8.2)
[2022-05-29] MEDS ORDERED: ALUMINUM/MAGNES/SIMETH MAX STR 30 ML UDCUP PO PRN (18:21)
[2022-05-29] MEDS ORDERED: ONDANSETRON 4 MG/2 ML VIAL IV PRN (18:21)
[2022-05-29 19:36] LABS: Calcium 8.5 MG/DL (8.5-10.1); Osmolality,Calculated 291.3 MOS/KG (273-304); Potassium 4.1 MMOL/L (3.5-5.1)
[2022-05-29] MEDS: DONEPEZIL 10 MG TABLET PO SCH (21:20)
[2022-05-29] MEDS: levETIRAcetam 500 MG TABLET PO SCH (21:20)
[2022-05-29] MEDS: APIXABAN 2.5 MG TABLET PO SCH (21:20)
[2022-05-29] MEDS: LACTATED RINGERS 1,000 ML IV SCH (21:20)
[2022-05-29] MEDS: BIMATOPROST 0.01% OPH SOLN 2.5 ML BOTTLE BOTH EYES SCH (21:38)
[2022-05-29] MEDS: DORZOLAMIDE/TIMOLOL OPH SOLN 10 ML BOTTLE BOTH EYES SCH (21:38)
[2022-05-29] MEDS: BRIMONIDINE/TIMOLOL OPH SOLN 5 ML BOTTLE BOTH EYES SCH (21:38)
[2022-05-30 04:59] LABS: Basophils % 0.4 % (0.0-0.8); Eosinophils # 0.4 10*3/uL (0.0-0.87); Eosinophils % 4.7 % (0.00-10.9); Hematocrit 39.9 VOL% (35.7-47.0); Hemoglobin 13.1 GM/DL (12.0-16.0); Immature Granulocytes % 0.2 %; Immature Granulocytes Absolute 0.02 #; Lymphocytes # 1.6 10*3/uL (1.4-4.0); Lymphocytes % 20.1 % (21.3-54.2); Mean Corpuscular HGB Conc 32.8 GM/DL (32-36); Mean Corpuscular Volume 91.7 FL (87-102); Mean Platelet Volume 11.1 FL (9.6-12.0); Monocytes # 0.4 10*3/uL (0.11-0.8); Monocytes % 5.2 % (1.7-12.7); Neutrophils % 69.4 % (38.7-73.9); Platelet Count 133 T/CUMM (130-400); Red Blood Count 4.35 MC/CUMM (3.8-5.5); Red Cell Distribution Width 13.6 % (9.3-17.3); White Blood Count 8.1 T/CUMM (4-12)
[2022-05-30 05:26] LABS: Calcium 8.9 MG/DL (8.5-10.1); Potassium 3.9 MMOL/L (3.5-5.1)
[2022-05-30] MEDS: LEVOTHYROXINE 75 MCG TABLET PO SCH (05:59)
[2022-05-30] MEDS: LACTATED RINGERS 1,000 ML IV SCH ×3 (06:05→23:14)
[2022-05-30] MEDS: DILTIAZEM CD 180 MG CAPSULE PO SCH (09:15)
[2022-05-30] MEDS: levETIRAcetam 500 MG TABLET PO SCH ×2 (09:16→20:38)
[2022-05-30] MEDS: ROSUVASTATIN 10 MG TABLET PO SCH (09:16)
[2022-05-30] MEDS: APIXABAN 2.5 MG TABLET PO SCH ×2 (09:17→20:40)
[2022-05-30] MEDS: METOPROLOL SUCCINATE XL 50 MG TABLET PO SCH (09:17)
[2022-05-30] MEDS: MAGNESIUM OXIDE 400 MG TABLET PO SCH (09:17)
[2022-05-30] MEDS: DORZOLAMIDE/TIMOLOL OPH SOLN 10 ML BOTTLE BOTH EYES SCH ×2 (09:18→20:42)
[2022-05-30] MEDS: BRIMONIDINE/TIMOLOL OPH SOLN 5 ML BOTTLE BOTH EYES SCH ×2 (09:18→20:41)
[2022-05-30] MEDS: MULTIVITAMIN (CENTRUM) TABLET PO SCH (09:18)
[2022-05-30] MEDS: ESCITALOPRAM 10 MG TABLET PO SCH (09:18)
[2022-05-30] MEDS: THEOPHYLLINE ER 300 MG TABLET PO SCH (11:07)
[2022-05-30] MEDS: cefTRIAXone 1,000 MG in SODIUM CHLORIDE 0.9% 100 ML IV SCH (15:24)
[2022-05-30] MEDS: CETIRIZINE 10 MG TABLET PO PRN (15:25)
[2022-05-30] MEDS: DONEPEZIL 10 MG TABLET PO SCH (20:39)
[2022-05-30] MEDS: BIMATOPROST 0.01% OPH SOLN 2.5 ML BOTTLE BOTH EYES SCH (20:42)
[2022-05-31] MEDS: LEVOTHYROXINE 75 MCG TABLET PO SCH (05:41)
[2022-05-31 06:26] LABS: Alanine Aminotransferase 13 U/L (13-56); Albumin 2.7 G/DL (3.4-5.0); Alkaline Phosphatase 112 U/L (45-117); Aspartate Amino Transferase 16 U/L (0-37); Bilirubin,Total < 0.39 MG/DL (0.20-1.00); Blood Urea Nitrogen 29 MG/DL (7-18); Calcium 8.7 MG/DL (8.5-10.1); Carbon Dioxide 25 MMOL/L (21-32); Chloride 113 MMOL/L (98-107); Glucose 81 MG/DL (74-106); Osmolality,Calculated 290.8 MOS/KG (273-304); Potassium 4.1 MMOL/L (3.5-5.1); Sodium 144 MMOL/L (136-145); Total Protein 5.6 G/DL (6.4-8.2)
[2022-05-31] MEDS: MAGNESIUM OXIDE 400 MG TABLET PO SCH (09:07)
[2022-05-31] MEDS: levETIRAcetam 500 MG TABLET PO SCH ×2 (09:07→20:47)
[2022-05-31] MEDS: THEOPHYLLINE ER 300 MG TABLET PO SCH (09:07)
[2022-05-31] MEDS: APIXABAN 2.5 MG TABLET PO SCH ×2 (09:08→20:47)
[2022-05-31] MEDS: ROSUVASTATIN 10 MG TABLET PO SCH (09:08)
[2022-05-31] MEDS: METOPROLOL SUCCINATE XL 50 MG TABLET PO SCH (09:08)
[2022-05-31] MEDS: ESCITALOPRAM 10 MG TABLET PO SCH (09:08)
[2022-05-31] MEDS: MULTIVITAMIN (CENTRUM) TABLET PO SCH (09:12)
[2022-05-31] MEDS: DILTIAZEM CD 180 MG CAPSULE PO SCH (09:13)
[2022-05-31] MEDS: DORZOLAMIDE/TIMOLOL OPH SOLN 10 ML BOTTLE BOTH EYES SCH ×2 (09:14→20:51)
[2022-05-31] MEDS: BRIMONIDINE/TIMOLOL OPH SOLN 5 ML BOTTLE BOTH EYES SCH ×2 (09:14→20:51)
[2022-05-31] MEDS: cefTRIAXone 1,000 MG in SODIUM CHLORIDE 0.9% 100 ML IV SCH (16:48)
[2022-05-31] MEDS: DONEPEZIL 10 MG TABLET PO SCH (20:47)
[2022-05-31] MEDS: BIMATOPROST 0.01% OPH SOLN 2.5 ML BOTTLE BOTH EYES SCH (20:51)
[2022-05-31] MEDS: LACTATED RINGERS 1,000 ML IV SCH (21:34)
[2022-06-01] MEDS: LEVOTHYROXINE 75 MCG TABLET PO SCH (05:56)
[2022-06-01 06:43] LABS: Calcium 9.1 MG/DL (8.5-10.1); Osmolality,Calculated 287.8 MOS/KG (273-304); Potassium 4.4 MMOL/L (3.5-5.1)
[2022-06-01] MEDS: levETIRAcetam 500 MG TABLET PO SCH (09:29)
[2022-06-01] MEDS: METOPROLOL SUCCINATE XL 50 MG TABLET PO SCH (09:29)
[2022-06-01] MEDS: DORZOLAMIDE/TIMOLOL OPH SOLN 10 ML BOTTLE BOTH EYES SCH (09:29)
[2022-06-01] MEDS: MAGNESIUM OXIDE 400 MG TABLET PO SCH (09:29)
[2022-06-01] MEDS: ROSUVASTATIN 10 MG TABLET PO SCH (09:29)
[2022-06-01] MEDS: MULTIVITAMIN (CENTRUM) TABLET PO SCH (09:29)
[2022-06-01] MEDS: APIXABAN 2.5 MG TABLET PO SCH (09:29)
[2022-06-01] MEDS: CETIRIZINE 10 MG TABLET PO PRN (09:30)
[2022-06-01] MEDS: BRIMONIDINE/TIMOLOL OPH SOLN 5 ML BOTTLE BOTH EYES SCH (09:30)
[2022-06-01] MEDS: ESCITALOPRAM 10 MG TABLET PO SCH (09:30)
[2022-06-01] MEDS: DILTIAZEM CD 180 MG CAPSULE PO SCH (09:30)
[2022-06-01] MEDS: THEOPHYLLINE ER 300 MG TABLET PO SCH (09:32)
[2022-06-01 12:05] VITALS: BP 155/91
== END 2022-06-01 13:35 | DRG 690 ==
LOC: N.ED 15:09 → N.EDINP 15:09 → SUATTDRO 18:04 → N.EDINP 20:39 → N.2W 20:48 → N.SDSINP 05-31 23:20 → N.3E 05-31 23:20
PROVIDERS: ADMIT Family Medicine; ATTEND Internal Medicine